=== PATIENT | female | born 1995 | race Caucasian/White ===

== ENCOUNTER 2024-04-04 03:06 | Emergency (ER) | payer MEDICAID, SELFPAY ==
[2024-04-04 03:07] VITALS: BMI 35.7
--- NOTE | 2024-04-04 03:19 | PC.NURSE ---
PT ELOPED THE ER DUE HER PRIMARY CARE BEING ASSOCIATED WITH KD. PROVIDER NOTIFIED.
== END 2024-04-04 03:21 | disposition left against medical advice (07) ==
LOC: SERX 03:36
PROVIDERS: Emergency Provider Emergency Medicine
DX: Z53.21 Procedure and treatment not carried out due to patient leaving prior to being seen by health care provider (principal)

== ENCOUNTER 2024-05-24 01:38 | Emergency (ER) | payer MEDICAID, SELFPAY ==
[2024-05-24] VITALS (11 sets, daily range): BP systolic 112–146; BP diastolic 63–83; PULSE 79–98; RESP 15–18; TEMP 36.8–37.4; O2SAT 98–100; BMI 35.9
--- NOTE | 2024-05-24 02:23 | EDNOTE_ITS ---
ED OB Contraction Preg RMI/HPI General Chief complaint: Vaginal Bleeding Stated complaint: VAGINAL BLEEDING Time Seen by Provider: 05/24/24 02:18 Arrival date/time: 05/24/24 01:38 RME / HPI RME / HPI Narrative: Dr. Martinez?s Main ED Evaluation: 28yo female A1 with a history of DMI BIBA who is 13 weeks gestationfrom home presents to the ED for a chief complaint of vaginal bleeding. Patient states she's been vomiting for the last 2 days, reporting she started being able to tolerate PO fluids at 1700 today. She states she went to bed and woke up just [employer] with her pants soaked in blood. She denies any fever, chills, cough, abdominal pain or any other associated symptoms. This current has had issues with vaginal bleeding where where she reports an ultrasound done as an outpatient twice showing an IUP but monitoring for a possible hemorrhage . Patient's OP is as [facility] in [place]. Patient notes her blood sugars have been elevated today. Related Data Home Medications ?Medication ?Instructions ?Recorded ?Confirmed vit no.95-ferrous tab PO 01/26/23 fumarate 28 mg-folic acid 800 mcg tablet () labetalol 200 mg tablet 200 mg PO BID 10/22/23 10/22/23 Previous Rx's ?Medication ?Instructions ?Recorded flash glucose sensor (FreeStyle #1 ea 02/24/22 Ramiro 14 Day Sensor kit) insulin glargine 100 unit/mL (3 40 unit (0.4 mL) subcut QDAY #15 mL 10/24/23 mL) subcutaneous pen (Lantus Solostar U-100 Insulin) insulin lispro 100 unit/mL 1 sliding scale dose subcut 10/24/23 subcutaneous solution (Admelog USEASDIRECTD #10 mL U-100 Insulin lispro) lancets 28 gauge #100 ea 10/24/23 pen needle, diabetic 31 gauge x #100 ea 10/24/23 1/4 (Easy Comfort Pen [place]) pen needle, diabetic 31 gauge x #100 ea 10/24/23 1/4 (Easy Comfort Pen [place]) ondansetron 4 mg disintegrating 4 mg PO Q6H PRN nausea and 01/05/24 tablet vomiting #10 tabs Allergies Allergy/AdvReac Type Severity Reaction Status Date / Time cephalexin Allergy Severe BLISTERS Verified 01/05/24 09:58 TO MOUTH midazolam Allergy Severe BEHAVIORAL Verified 01/05/24 09:58 AGGITATION sulfamethoxazole Allergy Severe BLISTER Verified 01/05/24 09:58 trimethoprim Allergy Severe BLISTER Verified 01/05/24 09:58 Review of Systems Review of Systems Systems Reviewed: All systems reviewed, normal except as documented Narrative Review of Systems: Gen: No fever, no chills, no weight loss, + elevated blood sugar EYES: No discharge, no visual changes, no pain HEENT: No ear pain, no congestion, no sore throat PULM: No shortness of breath, no cough, no congestion CV: No chest pain, no dyspnea on exertion, no palpitations GI: + nausea, + vomiting, no diarrhea, no pain, no constipation : No frequency, no urgency, no dysuria. + vaginal bleeding Musc/skel: No joint pain, no back pain Skin: No rash. Warm and dry. Psyc: No hallucinations, no depression Heme/Lymph: No easy bleeding or bruising tendencies Neuro: No weakness, no headache Past Medical History Past Medical History NEUROLOGIC: Negative Neurological Disorders CARDIAC: Positive Hypertension; Negative Cardiac Disorders or Congestive Heart Failure RESPIRATORY: Negative Chronic Obstructive Pulmonary Disease (COPD) or Asthma GASTROINTESTINAL: Negative Gastrointestinal Disorders GENITOURINARY: Positive Genitourinary Disorders and Kidney Stones; Negative Renal Disease REPRODUCTIVE: Positive Previous Pregnancies MUSCULOSKELETAL: Negative Musculoskeletal Disorders ENDOCRINE: Positive Endocrine Disorders and Diabetes Mellitus Type 1; Negative Diabetes Mellitus Type 2 HEMATOLOGIC: Negative Sickle Cell Disease PSYCHO/SOCIAL: Positive Depression and Anxiety OTHER HISTORY: Positive Hospitalization, MRSA and Chicken Pox; Negative Blood Transfusions or Anesthesia Reactions Family History FAMILY HISTORY: Positive Family Cardiac Disorders and Family Cancer Surgical History SURGICAL: Positive Section Social History SMOKING STATUS: Former smoker SECOND HAND EXPOSURE: No SUBSTANCE USE: marijuana ED Exam Narrative Physical exam: GENERAL APPEARANCE: AxOx4, generally well-appearing, no acute distress. HEENT: NC, AT. MMM. EOMI, clear conjunctiva, oropharynx clear. NECK: Supple without lymphadenopathy. No stiffness or restricted ROM. HEART: Normal rate and regular rhythm, normal S1/S1, no m/r/g LUNGS: CTAB, moving air well. No crackles or wheezes are heard. ABDOMEN: Soft, nontender, nondistended with good bowel sounds heard. BACK: No midline C/T/L spine pain or deformity, No CVAT, no obvious deformity. EXTREMITIES: Without cyanosis, clubbing or edema. MUSCULOSKELETAL: FROM of all major joints, no chest tenderness NEUROLOGICAL: Grossly nonfocal. Alert and oriented, moving all 4 extremities. CN not formally tested but appear grossly intact. Skin: Warm and dry without any rash. Course Quality Measures none Orders Category Date Time Status Beta HCG,Quantitative Stat Lab 05/24/24 02:50 Completed CBC Stat Lab 05/24/24 02:50 Completed CMP [Comprehensive Metabolic Panel] Stat Lab 05/24/24 02:50 Completed Ketone [Beta Hydroxybutyrate] Stat Lab 05/24/24 02:50 Completed Urinalysis Stat Lab 05/24/24 04:45 Received VBG [Venous Blood Gas] Stat Lab 05/24/24 02:50 Completed Ondansetron Inj [Zofran Inj] Med 05/24/24 03:03 Discontinued 4 mg IV X1 ONE Ondansetron Inj [Zofran Inj] Med 05/24/24 03:12 Discontinued 4 mg IV X1 ONE Sodium Chloride 0.9% 1000 ml [Ns] 1,000 ml Med 05/24/24 02:23 Discontinued IV 999 mls/hr Sodium Chloride 0.9% 1000 ml [Ns] 1,000 ml Med 05/24/24 02:24 Discontinued IV 999 mls/hr Sodium Chloride 0.9% 1000 ml [Ns] 1,000 ml Med 05/24/24 04:10 Discontinued IV 999 mls/hr Vital Signs Vital signs: Vital Signs Temperature 98.9 F 05/24/24 01:40 Pulse Rate 88 05/24/24 01:40 Respiratory Rate 17 05/24/24 01:40 Blood Pressure 112/71 05/24/24 01:40 Pulse Oximetry (%) 100 05/24/24 01:40 Oxygen Delivery Method Room Air 05/24/24 01:40 Pulse ox is 100% on room air, which is normal according to my interpretation. Vaginal Bleeding MDM Narrative MDM Narrative: Ms. Davenport is 13 weeks with outpatient ultrasound and already confirmed IUP who presents with both nausea vomiting has been persistent with her and recurrence of vaginal bleeding for the last 2 days. She does not have pelvic pain. She had elevated blood sugars at home and come to the emergency department to assess for possible DKA. Laboratory testing showed noes anion gap acidosis with a be consistent with diabetic ketoacidosis. She does have some signs of volume contraction or even possibly ketosis secondary to her nausea vomiting, therefore she was aggressively treated with IV fluids. Quantitative beta-hCG was sent today for her to monitor with her primary care doctor. Ultrasound is not indicated today due to the early age of and having been ruled out for ectopic by her [employer] doctor as an outpatient. For vaginal bleeding CBC was done which shows a stable hemoglobin. She is pending urinalysis for possible asymptomatic bacteriuria, and is signed out to oncoming provider pending urine results and final disposition Scribe Attestation: 05/24/24 - Elba, Merle Hines am scribing for and in the presence of Dr. Martinez. Patient data External records reviewed:: [facility] previous records (Per chart review, patient was seen and admitted here on 10/21/23 for JESUS.) Clinical information provided by:: patient Social determinants that could affect healthcare access:: none Patient has the following chronic illnesses:: DMI, HTN How is presenting disease/condition affected by chronic disease/condition?: exacerbated by Evaluation data The following diagnostics were reviewed and interpreted by me:: lab results Lab and/or radiology exams considered but not ordered:: none Interpretation Summary: WBC count is elevated at 18.0, Beta Hydroxybutyrate is 2.6, Glucose is 263, [place] [address], according to my interpretation. Medications / Prescriptions Medications or Prescriptions considered but not ordered:: none Medication administrations:: Medication Administration History Discontinued Medications Sodium Chloride (Ns) 1,000 mls @ 999 mls/hr IV .Q1H1M ONE Stop: 05/24/24 03:23 Last Infusion: 05/24/24 04:27 Dose: Infused Documented By: Admin: 05/24/24 03:05 Dose: 999 mls/hr Documented By: ASHLEY Sodium Chloride (Ns) 1,000 mls @ 999 mls/hr IV .Q1H1M ONE Stop: 05/24/24 03:24 Last Infusion: 05/24/24 04:27 Dose: Infused Documented By: Admin: 05/24/24 03:04 Dose: 999 mls/hr Documented By: ASHLEY Sodium Chloride (Ns) 1,000 mls @ 999 mls/hr IV .Q1H1M ONE Stop: 05/24/24 05:10 Last Admin: 05/24/24 04:38 Dose: 999 mls/hr Documented By: ASHLEY Ondansetron HCl (Ondansetron Inj 2 Mg/Ml Inj 2 Ml) 4 mg IV X1 ONE; Protocol Stop: 05/24/24 03:04 Last Admin: 05/24/24 03:16 Dose: Not Given Documented By: ASHLEY Non-Admin Reason: Duplicate Medication on eMAR Ondansetron HCl (Ondansetron Inj 2 Mg/Ml Inj 2 Ml) 4 mg IV X1 ONE; Protocol Stop: 05/24/24 03:13 Last Admin: 05/24/24 03:15 Dose: 4 mg Documented By: ASHLEY see above Consultations Consultation(s) initiated? (list below): No Diagnosis Vaginal Bleeding Differential Diagnosis: other (DKA, diabetic gastroparesis, vomiting in , hyperemesis gravidarum, threatened miscarriage) Most likely diagnosis given after review of the tests above:: final dx pending at sign out Admission Indicated Admission indicated?: not indicated Admission Request Was there a request for admission?: No Disposition Plan Disposition Plan: other (specify) (Signed out to Dr. Combs at 0600 pending urinalysis and final disposition.) Discharge Plan Plan Patient Disposition: HOME (Self Care) Prescriptions/Referrals Prescriptions/Med Rec: No Action ondansetron 4 mg tablet,disintegrating 4 mg PO Q6H PRN (Reason: nausea and vomiting) Qty: 10 0RF (DME) FreeStyle Ramiro 14 Day Sensor Kit See Rx Instructions .Route Qty: 1 0RF Rx Instructions: As directed PNV cmb#95-ferrous fumarate-FA [] 28 mg iron- 800 mcg Tablet PO labetalol 200 mg tablet 200 mg PO BID Patient Comments: TAKE ONE TABLET BY MOUTH TWICE DAILY (DME) pen needle, diabetic [Easy Comfort Pen [place]] 31 gauge x 1/4 needle See Rx Instructions .Route Qty: 100 2RF Rx Instructions: As directed insulin glargine [Lantus Solostar U-100 Insulin] 100 unit/mL (3 mL) insulin pen 40 unit subcut QDAY Qty: 15 6RF insulin lispro [Admelog U-100 Insulin lispro] 100 unit/mL solution 1 sliding scale dose subcut USEASDIRECTD Qty: 10 8RF (DME) lancets 28 gauge misc See Rx Instructions .Route Qty: 100 0RF Rx Instructions: As directed (DME) pen needle, diabetic [Easy Comfort Pen [place]] 31 gauge x 1/4 needle See Rx Instructions .Route Qty: 100 0RF Rx Instructions: As directed Referrals: Vickie Valentine MD [Primary Care Provider] - In 1 week Problem List Clinical Impression: Nausea and vomiting during , Threatened miscarriage Patient/Caregiver Discharge Instructions Education Materials: ED Possible Miscarriage ..., ED Vomiting (Adult) Additional Instructions: During is important to stay very well-hydrated. Nausea medicines are prescribed to help you with this. Bleeding can be normal in early , but also can be sign of a possible miscarriage. Pelvic rest until cleared by your [employer] [place] [address], follow-up with your [employer] in 2 to 3 days for possible repeat blood testing. It can be useful to ensure you are signed up for portal access to your medical records so you can review these results directly from your medical records with your [employer] doctor. Feel free return to the emergency department sooner if symptoms worsen or if you notice any new, concerning issues. Print Language: Kinyarwanda Stand Alone Forms: Ophelia Award Info., Patient Portal Info Letter
[2024-05-24 03:03] LABS: Base Excess, Venous -7 (-3-3); O2 Saturation, Venous 88 % (96-97); PCO2, Venous 28 mmHg (36-56); PO2, Venous 54 mmHg (15-58); pH, Venous 7.38 (7.33-7.66)
[2024-05-24] MEDS: SODIUM CHLORIDE 0.9% 1000 ML 1,000 ML 999 ML IV ×3 (03:04→04:38)
[2024-05-24 03:13] LABS: Basophils % (Auto) 0 % (0-2.5); Eosinophils % (Auto) 0 % (0-10); Hematocrit 41.5 % (36.0-46.0); Hemoglobin 14.1 g/dL (12.0-16.0); Immature Granulocytes % (Auto) 0 % (0-0); Immature Granulocytes Auto 0.07 Thou/mm3 (0.00-0.00); Lymphocytes # (Auto) 2.1 Thou/mm3 (1.0-4.8); Lymphocytes % (Auto) 12 % (10-50); Mean Corpuscular Hemoglobin 29.7 pg (25.0-35.0); Mean Corpuscular Volume 88 fL (80-100); Monocytes % (Auto) 6 % (0-12); Neutrophils # (Auto) 14.7 Thou/mm3 (1.8-7.7); Neutrophils % (Auto) 82 % (37-80); Nucleated Red Blood Cell % 0 /100 WBC (0); Platelet Count 183 Thou/mm3 (140-440); RDW Standard Deviation 45.2 fL (36.4-46.3); Red Blood Count 4.74 Miln/mm3 (4.00-5.20)
[2024-05-24] MEDS: ONDANSETRON INJ 2 MG/ML INJ 2 ML 4 MG IV (03:15)
[2024-05-24 03:24] LABS: Beta Hydroxybutyrate 2.6 mmol/L (<0.6)
[2024-05-24 03:51] LABS: Alanine Aminotransferase 14 U/L (10-49); Albumin, Serum 4.6 gm/dL (3.5-5.0); Albumin/Globulin Ratio 1.8 (1.2-2.2); Alkaline Phosphatase 93 U/L (46-116); Anion Gap 14 (7-16); Aspartate Amino Transferase 21 U/L (0-34); BUN/Creatinine Ratio 16 Ratio (12-20); Bilirubin,Total 1.1 mg/dL (0.3-1.2); Blood Urea Nitrogen 11 mg/dL (9-23); Chloride 101 mMol/L (98-107); Creatinine (Component) 0.7 mg/dL (0.6-1.3); Estimated Creatinine Clearance 120.4 mL/min (>60); Globulin 2.6 gm/dL (2.3-3.5); Glucose 263 mg/dL (74-106); Osmolality,Calculated 271 (275-295); Potassium 4.2 mMol/L (3.4-5.1); Sodium 131 mMol/L (136-145); Total Protein 7.2 gm/dL (5.7-8.2); eGFR > 60 See Note
[2024-05-24 04:15] LABS: Beta HCG,Quantitative 48473 mIU/mL (<5.0)
[2024-05-24 05:28] LABS: Collection Type, Urine Clean Catch
[2024-05-24 05:43] LABS: Bilirubin,Urine Negative (Negative); Blood,Urine 3+ (Negative); Clarity,Urine Clear (Clear/Hazy); Color,Urine Lt-Yellow (Lt Yel-Yel); Glucose, Urine 4+ (Negative); Ketones,Urine 4+ (Negative); Leukocyte Esterase,Urine Negative (Negative); Nitrite,Urine Negative (Negative); Protein,Urine 1+ (Neg - Trace); RBC,Urine 3 /hpf (0-3); Specific Gravity,Urine 1.031 (1.001-1.035); Squamous Epithelial Cell,Urine 4 /hpf (0-5); Urobilinogen,Urine Negative mg/dL (0.0-1.0); WBC,Urine 4 /hpf (0-5)
--- NOTE | 2024-05-24 06:47 | XR_ITS ---
Examination: Complete OB ultrasound, less than 14 weeks, transabdominal Date and time of exam: May 24, 2024 0743 hrs. Indications: Vaginal bleeding beginning one month ago, worse today, vomiting beginning 2 days ago, diagnosis diabetes type 1, history miscarriage Technique: Obstetrical ultrasound images less than 14 weeks performed via transabdominal imaging Findings: A normal shaped single intrauterine gestation is present in the uterus. Uterus 16.3 x 7.3 x 10.9 cm Cervix 4.4 cm pole 7.2 cm corresponds to 13 weeks 3 days gestational age Cardiac motion 148 BPM Placenta fundal no subchorionic hemorrhage Ultrasonographic survey of visible and placental structures unremarkable. Amniotic fluid volume appears appropriate for this estimated gestational age. Right ovary 4.2 x 2.3 x 2.6 cm arterial flow Left ovary 4.2 x 2.3 x 2.9 cm arterial flow Impression: Viable intrauterine gestation 13 weeks 3 days No subchorionic hemorrhage.
--- NOTE | 2024-05-24 07:05 | PC.NURSE ---
Report received at this time; per report, pt coming from home with c/o heavy vaginal bleeding around 0130 this morning. Pt is G5, P3; pt did have 1 miscarriage. Pt ordoñez hx of DM type 1. Pt is currently 13 weeks . MD ordered Ultrasound, but we're still waiting on tech to come do it. Pt connected to monitors at this time.
--- NOTE | 2024-05-24 07:30 | PC.NURSE ---
Spoke to Christina from [facility]; per Christina, will come get pt next after I ultrasound on another pt.
--- NOTE | 2024-05-24 08:52 | PD.EDADDENDU ---
Emergency Room Addendum Addendum Narrative: I took over the care from Dr. Wheatley at 6 AM on 05/24/2024, see his notes for complete H&P and ED course. I reviewed all diagnostic test results. My review of the OB ultrasound report is IUP with GA 13 3/7 weeks. Blood tests and urine tests unremarkable. At this point, diagnoses include threatened miscarriage and severe dehydration. Treatment here included IV fluid and Zofran. Significant improvement noted. Recommended supportive care and expectant management. Based on my best medical judgment, made decision no further evaluation or treatment indicated at this time. Patient understands and agrees to the discharge instructions customized and printed, see below. Discharge Instructions from Dr. Combs: 1.? ? ? After evaluation, your baby is alive and doing well. 2.? ? ? Today, your GA is 13 3/7 weeks. 3.? ? ? Only time will determine whether you will have a successful or you will have a miscarriage.? If your symptoms stop, you can have a successful .? If your symptoms worsen, you may have a miscarriage.? If you have a miscarriage, unfortunately we won?t be able to save the baby because it?s too early.? Under 20 weeks, unfortunately we can?t help.? 4.? ? ? We need to eat regular nutritious meals and stay hydrated for you and your baby. Zofran for nausea/vomiting.? Increase oral fluid and maintain clear urine.? If dark or yellow, increase oral fluid. Some good choices are water (but not only water because it will cause electrolyte abnormalities), sports drinks like Gatorade (with less sugar content), coconut water, chicken stock, and other fluid with electrolytes (like Pedialyte). 5.? ? ? See your doctor on 05/26/2024 for recheck and further care. No sexual activity until cleared by your doctor. Ask to review all test results and official radiology reports, to make sure you receive all necessary follow-ups and monitoring. Seek immediate medical care for severe bleeding (soaking more than 3 pads per hour), intolerable pain, or with any concerns. Vargas Combs MD
== END 2024-05-24 09:08 | disposition home or self-care (01) ==
PROVIDERS: Emergency Medicine; Emergency Provider Emergency Medicine; PCP Internal Medicine
DX: O20.0 Threatened abortion (principal); O21.9 Vomiting of pregnancy, unspecified; Z3A.13 13 weeks gestation of pregnancy
CPT/HCPCS: 36415; 76801; 80053; 81001; 82010; 82803; 83735; 84702; 85025; 96361; 96374; 99284; J2405; J7030

== ENCOUNTER 2024-09-10 07:29 | Inpatient (IN) | payer MEDICAID, SELFPAY ==
[2024-09-10] VITALS (33 sets, daily range): BP systolic 125–158; BP diastolic 67–97; PULSE 73–118; RESP 16–36; TEMP 37–37.4; O2SAT 98–100; BMI 43.0; BMI 41.5
--- NOTE | 2024-09-10 07:55 | PD.EDNV ---
Nausea/Vomit./Diarrhea-RME/HPI General Chief complaint: Nausea/Vomiting/Diarrhea Stated complaint: N/V Time Seen by Provider: 09/10/24 07:57 Arrival date/time: 09/10/24 07:29 RME / HPI RME / HPI Narrative: 29 year old female with history of insulin-dependant diabetes and previous admission for DKA presents to the ED for evaluation of nausea and vomiting beginning at midnight. Accompanied by feeling very fatigued and abdominal pain that is located most to the epigastric region. States her symptoms today feel like I'm on the road to DKA and blood sugar yesterday was in the 400's. Denies missing any insulin doses. Denies fevers, chills, sweats, diarrhea, or urinary symptoms. Related Data Home Medications ?Medication ?Instructions ?Recorded ?Confirmed vit no.95-ferrous tab PO 01/26/23 fumarate 28 mg-folic acid 800 mcg tablet () labetalol 200 mg tablet 200 mg PO BID 10/22/23 10/22/23 Previous Rx's ?Medication ?Instructions ?Recorded flash glucose sensor (FreeStyle #1 ea 02/24/22 Ramiro 14 Day Sensor kit) insulin glargine 100 unit/mL (3 40 unit (0.4 mL) subcut QDAY #15 mL 10/24/23 mL) subcutaneous pen (Lantus Solostar U-100 Insulin) insulin lispro 100 unit/mL 1 sliding scale dose subcut 10/24/23 subcutaneous solution (Admelog USEASDIRECTD #10 mL U-100 Insulin lispro) lancets 28 gauge #100 ea 10/24/23 pen needle, diabetic 31 gauge x #100 ea 10/24/23 1/4 (Easy Comfort Pen [place]) pen needle, diabetic 31 gauge x #100 ea 10/24/23 1/4 (Easy Comfort Pen [place]) ondansetron 4 mg disintegrating 4 mg PO Q6H PRN nausea and 01/05/24 tablet vomiting #10 tabs Allergies Allergy/AdvReac Type Severity Reaction Status Date / Time cephalexin Allergy Severe BLISTERS Verified 09/10/24 07:34 TO MOUTH midazolam Allergy Severe BEHAVIORAL Verified 09/10/24 07:34 AGGITATION sulfamethoxazole Allergy Severe BLISTER Verified 09/10/24 07:34 trimethoprim Allergy Severe BLISTER Verified 09/10/24 07:34 Review of Systems Review of Systems Narrative Review of Systems: Constitutional: SEE HPI +feeling fatigued. DENIES; Fevers Eyes: DENIES; Loss of vision Head/Ear/Nose: DENIES; Loss of hearing Throat: DENIES; Dysphagia Cardiovascular: DENIES; Chest pain, dyspnea or syncope Respiratory: DENIES; Shortness of breath Gastrointestinal: SEE HPI +nausea, vomiting, abdominal pain. DENIES; Rectal bleeding or melena. Genitourinary: DENIES; Dysuria (painful or difficult urination) Musculoskeletal: DENIES; Arthralgia (pain in a joint),; Skin: DENIES; Rash Neurological: DENIES; Loss of function or movement Psychiatric: DENIES; recent major life stressor, emotional problem, illicit drug use or abuse Allergic/Immunologic: DENIES; Urticaria (hives) Past Medical History Past Medical History CARDIAC: Positive Hypertension GENITOURINARY: Positive Genitourinary Disorders and Kidney Stones REPRODUCTIVE: Positive Previous Pregnancies (3 C-SECTIONS) ENDOCRINE: Positive Endocrine Disorders and Diabetes Mellitus Type 1 PSYCHO/SOCIAL: Positive Depression and Anxiety OTHER HISTORY: Positive Hospitalization, MRSA and Chicken Pox Family History FAMILY HISTORY: Positive Family Cardiac Disorders and Family Cancer Surgical History SURGICAL: Positive Section Social History SMOKING STATUS: Never smoker SECOND HAND EXPOSURE: No SUBSTANCE USE: marijuana ED Exam Narrative Physical exam: Physical Exam: General: The patient is sleepy but arousable to questions, no kussmaul breathing. The vital signs were reviewed. The patient is non-toxic, in no apparent distress and appears healthy with a patent airway, no respiratory distress and has no apparent circulatory problems. Head & Scalp: Normocephalic, atraumatic. Face: Appears normal and is without lesions, deformity. Ears: Left external pinna appears normal. Right external pinna appears normal. Eyes: The sclera is anicteric. No obvious photophobia. The Left and Right Orbit/Lid/Conjunctiva appears normal without swelling, discoloration or injection. Nose: The nose is without deformity, discharge or tenderness; Throat: Appears normal. The mucous membranes are pink and moist without exudates, redness or mass seen. The tongue appears normal. Neck: The neck is supple and no apparent mass or adenopathy. Chest: The chest wall is normal in size and symmetry and has no chest wall tenderness or crepitus. The patient displays normal ventilator effort without retractions, accessory muscle use and has adequate air movement bilaterally with no wheezes and no rales. Cardiovascular: Regular rate and rhythm; No murmurs, rubs, or gallops; Gastrointestinal: The abdomen appears normal. No obvious hernias or mass. The abdomen is soft and benign, non-distended, with no pain, no guarding and no rebound tenderness. Bowel sounds are present and normal sounding. No CVA tenderness. Genitourinary: Back/Spine: Extremities/Musculoskeletal/lymphatic: The bilateral upper and lower extremities are warm. There is no evidence of arterial insufficiency. There is no evidence of venous insufficiency/edema. The patient spontaneously moves bilateral upper and lower extremities with no pain and no limitation of movement. There is no apparent, injury or trauma. Skin: The skin is warm, dry and intact. No rashes. No petechia. No purpura. No abnormal bruising. The color is appropriate with no cyanosis. Mental status/Psychiatric: Mental status is appropriate for age. The patient has no apparent delusions, visual hallucinations, no apparent audible hallucinations. The patient has no apparent suicidal thoughts/ideation and no apparent homicidal thoughts/ideation. Neurological: The patient is awake, alert, interactive, cordial, cooperative and is oriented to name and situation. The patient follows commands and answers historical question with no impairment. There is no visual disturbance apparent. The pupils are equal and reactive bilaterally with normal eye movements and no diplopia The bilateral upper and lower extremities have normal strength, normal range of motion and normal functioning. The gait, station and balance were not tested. Course Quality Measures none Orders Category Date Time Status Patient Condition Routine Admission 09/10/24 13:[address] in Observation Status Routine Admission 09/10/24 13:58 Active Activity as Tolerated Routine Care 09/10/24 13:58 Ordered EKG (ED ONLY) *Do not use* NOW Care 09/10/24 08:50 Completed Notify provider NEEDED Care 09/10/24 13:57 Active Diet Carbohydrate Consistent Low Diet 09/10/24 Lunch Active EKG (ED Only) Stat Exams 09/10/24 08:50 Draft US OB <= 14 weeks fetus Stat Exams 09/10/24 11:31 Completed XR chest 1V portable Stat Exams 09/10/24 07:57 Completed Beta HCG,Quantitative Stat Lab 09/10/24 09:45 Completed Beta Hydroxybutyrate Stat Lab 09/10/24 08:10 Completed Blood Culture (Lab) Stat Lab 09/10/24 09:15 Received CBC Stat Lab 09/10/24 08:10 Completed Comprehensive Metabolic Panel Stat Lab 09/10/24 08:10 Completed HCG Qualitative,Urine Stat Lab 09/10/24 08:20 Completed Lactate (Lactic Acid) Stat Lab 09/10/24 08:25 Completed Lipase Stat Lab 09/10/24 08:10 Completed Troponin I Stat Lab 09/10/24 08:10 Completed Urinalysis Stat Lab 09/10/24 08:20 Completed Urinalysis, C/S if Indicated Stat Lab 09/10/24 08:20 Completed Venous Blood Gas Stat Lab 09/10/24 08:25 Completed Insulin Regular Med 09/10/24 13:20 Discontinued 5 unit IV X1 ONE Ondansetron Inj [Zofran Inj] Med 09/10/24 07:57 Discontinued 4 mg IV X1 ONE Sodium Chloride 0.9% 1000 ml [Ns] 1,000 ml Med 09/10/24 08:00 Discontinued IV 200 mls/hr Sodium Chloride 0.9% 1000 ml [Ns] 1,000 ml Med 09/10/24 13:20 Discontinued IV 999 mls/hr Sodium Chloride 0.9% 1000 ml [Ns] 2,000 ml Med 09/10/24 07:57 Discontinued IV 1,000 mls/hr Code Status Routine Oth 09/10/24 13:57 Ordered Vital Signs Vital signs: Vital Signs Temperature 99.3 F 09/10/24 07:31 Pulse Rate 78 09/10/24 07:31 Respiratory Rate 16 09/10/24 07:31 Blood Pressure 138/85 H 09/10/24 07:31 Pulse Oximetry (%) 98 09/10/24 07:31 Oxygen Delivery Method Room Air 09/10/24 07:31 Pulse ox is 98% on room air which is adequate. Nausea/Vomiting/Diarrhea MDM Narrative MDM Narrative:: Jennyfer Arreola am scribing for and in the presence of Dr. Elizabeth. 0935: Patient reports she had a miscarriage at 18w1d earlier this year and a follow up appt with OBGYN 6 weeks after. States she has a menses last month and took a test last week that was negative. Patient is A2. Patient was concern for her diabetes and DKA when she arrived she was vomiting she received 2 L of fluid her sugars were in the 200 range on several checks. Her labs came back with a mild elevation hydroxybutyrate and a mild metabolic acidosis. Patient is comfortable. She gave us information about her recent after she was already in the room getting worked up and then we found her test was positive and quantitative came back at 457 ultrasound is negative as it is too early to see and technically she is 1 to 10 days by her dates. After 2 L of fluid patient is feeling more comfortable. Medical workup reveals a white count 8.9 hemoglobin of 14.3 there is a 91% neutrophils. Venous blood gas came back the pH is 7.32 with a pCO2 of 33 sodium 138 potassium 4.3 chloride 106 CO2 slightly low at 19 anion gap is 13 BUN is 8 creatinine is 0.7 glucose was 281 lactic acid 1.3 troponin was negative beta-hydroxybutyrate came back at 3.5. Urinalysis came back with 4+ glucose 4+ ketones no white cells no red cells. Chest x-ray reveals no infiltrate no effusion normal heart Show as mentioned above patient has mild DKA the cause of this is unclear she is an early but that is not appear to be the issue. There is no obvious infection clinically. We called the hospitalist to admit we will start her on some IV insulin 5 units continue the fluids. Patient was updated on the status of her and the DKA and understand she will be admitted. Patient data External records reviewed:: [facility] previous records (I reviewed ED visit on 05/24/2024 for n/v ) Clinical information provided by:: patient Social determinants that could affect healthcare access:: none Patient has the following chronic illnesses:: T1DM, hx of DKA How is presenting disease/condition affected by chronic disease/condition?: exacerbated by Evaluation data The following diagnostics were reviewed and interpreted by me:: lab results, radiology exam(s) and EKG tracing(s) (EKG @ 08:59 hours. Sinus rhythm, rate 72, no STEMI. ) Lab and/or radiology exams considered but not ordered:: None Interpretation Summary: Ordering Physician: Mina Elizabeth MD Date of Service: 09/10/24 Procedure(s): XR chest 1V portable Accession Number(s): [id number] cc: Mina Elizabeth MD; Mg Myles MD; NO PRIMARY/FAMILY,PHYSICIAN~ Examination: AP chest single view Technique : AP portable upright chest single view Exam date and time: September 10, 2024 at 0810 hours Comparison January 05, 2024 INDICATIONS: Onset chest pain today. FINDINGS: Normal heart size. Lungs are clear. The osseous structures are intact IMPRESSION: No active disease Dictated By: Mg Myles MD Signed By: <Electronically signed by Mg Myles MD in OV> 09/10/24 0906 Ordering Physician: Mina Elizabeth MD Date of Service: 09/10/24 Procedure(s): US OB <= 14 weeks fetus Accession Number(s): [id number] cc: Mina Elizabeth MD; Mg Myles MD; NO PRIMARY/FAMILY,PHYSICIAN~ Examination: Complete OB ultrasound, less than 14 weeks, transabdominal Date and time of exam: September 10, 2024 1134 hours INDICATIONS: Nausea vomiting today, diagnosis diabetes, diagnosis history miscarriage Technique: Obstetrical ultrasound images less than 14 weeks performed via transabdominal imaging Findings: Uterus 9.1 cm endometrial stripe 1.1 cm suspicious for retained products of conception No intrauterine gestation Right ovary 3.6 cm arterial flow Left ovary 6.3 cm arterial flow 4.6 x 4.9 cm cyst IMPRESSION: Suspicious for retained product of conception, consider transvaginal pelvic sonography follow-up Dictated By: Mg Myles MD Signed By: <Electronically signed by Mg Myles MD in OV> 09/10/24 1208 Medications / Prescriptions Medications / Prescriptions considered but not ordered:: None Medication administrations:: Medication Administration History Acetaminophen (Acetaminophen 325 Mg Tablet) 650 mg PO Q6H PRN PRN Reason: Mild Pain 1-3 or Fever 100.3 Stop: 10/10/24 13:58 Dextrose (Dextrose 50%-Water Inj 50 Ml Syringe) 25 ml IV Q15MIN PRN PRN Reason: BG 50-70 responsive npo pt Stop: 10/10/24 14:01 Dextrose (Dextrose 50%-Water Inj 50 Ml Syringe) 50 ml IV Q15MIN PRN PRN Reason: BG <50 OR BG <70 & pt unresponsive Stop: 10/10/24 14:01 Glucagon (Glucagon Inj 1 Mg Vial) 1 mg IM Q15MIN PRN PRN Reason: BG <70, and no IV access Heparin Sodium (Porcine) (Heparin Sod Inj 5000 Unit/Ml Vial) 5,000 unit SC Q12HR DAISY Stop: 09/24/24 20:59 Sodium Chloride (Ns) 1,000 mls @ 80 mls/hr IV .[id number] ONE Stop: 09/11/24 04:46 Last Admin: 09/10/24 16:49 Dose: 80 mls/hr Documented By: BRIAN Insulin Glargine (Insulin Glargine (Lantus) 5 Unit/0.05 Ml (Per 5 Units)) 20 unit SC [facility] Stop: 10/10/24 20:59 Insulin Human Lispro (Insulin Lispro (Admelog) 1 Unit/0.01 Ml Unit) 0 unit SC [facility]; Protocol Stop: 10/10/24 16:59 Last Admin: 09/10/24 16:48 Dose: 2 unit Documented By: BRIAN Co-signed By: SEGUN Labetalol HCl (Labetalol 100 Mg Tablet) 100 mg PO QDAY DAISY Stop: 10/10/24 18:44 Metoclopramide HCl (Metoclopramide Inj 5 Mg/Ml Vial 2 Ml) 5 mg IVP Q6HR DAISY; Protocol Stop: 10/10/24 17:59 Last Admin: 09/10/24 16:56 Dose: 5 mg Documented By: BRIAN Ondansetron HCl (Ondansetron Inj 2 Mg/Ml Inj 2 Ml) 4 mg IV Q6H PRN; Protocol PRN Reason: NAUSEA OR VOMITING Stop: 10/10/24 13:58 Sennosides (Senna Tablet) 1 tab PO QDAY DAISY; Protocol Stop: 10/10/24 13:59 Last Admin: 09/10/24 14:20 Dose: 1 tab Documented By: SALONI Discontinued Medications Sodium Chloride (Ns) 1,000 mls @ 200 mls/hr IV .Q5H DAISY Stop: 10/10/24 07:59 Last Admin: 09/10/24 16:39 Dose: Not Given Documented By: BRIAN Non-Admin Reason: Discontinued Admin: 09/10/24 10:08 Dose: 200 mls/hr Documented By: SALONI Sodium Chloride (Ns) 2,000 mls @ 1,000 mls/hr IV .Q2H ONE Stop: 09/10/24 09:56 Last Infusion: 09/10/24 10:08 Dose: Infused Documented By: Admin: 09/10/24 08:19 Dose: 1,000 mls/hr Documented By: SALONI Sodium Chloride (Ns) 1,000 mls @ 999 mls/hr IV .Q1H1M ONE Stop: 09/10/24 14:20 Last Admin: 09/10/24 14:29 Dose: 999 mls/hr Documented By: SALONI Insulin Human Regular (Insulin Hum Regular 1 Unit/0.01 Ml (Per Unit)) 5 unit IV X1 ONE Stop: 09/10/24 13:21 Last Admin: 09/10/24 14:21 Dose: 5 unit Documented By: SALONI Co-signed By: DAVINA Ondansetron HCl (Ondansetron Inj 2 Mg/Ml Inj 2 Ml) 4 mg IV X1 ONE Stop: 09/10/24 07:58 Last Admin: 09/10/24 08:19 Dose: 4 mg Documented By: SALONI Pyridoxine HCl (Pyridoxine 50 Mg Tablet) 50 mg PO X1 ONE Stop: 09/10/24 16:18 Last Admin: 09/10/24 16:59 Dose: Not Given Documented By: BRIAN Non-Admin Reason: pt throwing up See above Consultations Consultation(s) initiated? (list below): Yes Consultation #1 (Physician, Specialty, Details): I spoke with resident Dr. Irwin. Discussed patients PMHx, HPI, ED course, exam findings, labs, and radiology results. The hospitalist agree to accept the patient for admission. Time: 13:20 Diagnosis Nausea Differential Diagnosis: gastroenteritis, drug-induced nausea and vomiting, dehydration and other (DKA ) Most likely diagnosis given after review of the tests above:: DKA First trimester Admission Indicated Admission indicated?: indicated Admission Request Was there a request for admission?: Yes Admission Attestation Admission request attestation: Discussed case with [] from Hospitalist service regarding admission. Discussed patients ED course, exam findings, labs, and radiology results. The Hospitalist [agrees,declines] to accept the patient for admission. Disposition Plan Disposition Plan: Admit Critical Care Time Critical Care Time Critical Care Time: Yes Total Critical Care Time (min.): 45 Attestation: The high probability of sudden, clinically significant deterioration in the patient's condition required the highest level of my preparedness to intervene urgently. The services I provided to this patient were to treat and/or prevent clinically significant deterioration. Services included the following: chart data review, reviewing nursing notes and/or old charts, documentation time, microsoft infrastructure consultant collaboration regarding findings and treatment options, medication orders and management, direct patient care, vital sign assessments and ordering, interpreting and reviewing diagnostic studies and lab tests. Aggregate critical care time includes only time during which I was engaged in work directly related to the patient's care, as described above, whether at bedside or elsewhere in the Emergency Department. It did not include time spent performing other reported procedures or the services of residents, students, nurses or physician assistants. Discharge Plan Plan Patient Disposition: Admit Acute Care w/in Hospital Disposition Comment: Hospitalist to admit Problem List Clinical Impression: Diabetic ketoacidosis, First trimester
[2024-09-10] MEDS: ONDANSETRON INJ 2 MG/ML INJ 2 ML 4 MG IV (08:19)
[2024-09-10] MEDS: SODIUM CHLORIDE 0.9% 1000 ML 2,000 ML IV (08:19)
--- NOTE | 2024-09-10 08:50 | EKG_ITS ---
[facility] Test Date: 2024-09-10 Pat Name: SUNDAR SIDDIQI Department: Room: - Gender: Female Health Outcomes Liaison: : 1995 Requested By: Mina Elizabeth Order Number: [id number] Reading MD: Mina Elizabeth Measurements Intervals [place] Rate: 72 P: 48 OR: 156 QRS: 0 QRSD: 95 T: 17 QT: 411 QTc: 450 Interpretive Statements SINUS RHYTHM Compared to ECG 10/22/2023 15:29:20 Atrial fibrillation no longer present /store/S0/[id number].pdf
[2024-09-10 09:02] LABS: Collection Type, Urine Catheter; RBC,Urine 0 /hpf (0-3); Squamous Epithelial Cell,Urine 0 /hpf (0-5); WBC,Urine 0 /hpf (0-5)
[2024-09-10 09:03] LABS: HCG Qualitative,Urine Positive
[2024-09-10 09:32] LABS: Base Excess, Venous -8 (-3-3); Lactate (Lactic Acid) 1.3 mMol/L (0.4-2.0); O2 Saturation, Venous 77 % (96-97); PCO2, Venous 33 mmHg (36-56); PO2, Venous 43 mmHg (15-58); pH, Venous 7.32 (7.33-7.66)
[2024-09-10 09:39] LABS: Basophils % (Auto) 0 % (0-2.5); Eosinophils % (Auto) 0 % (0-10); Hematocrit 41.2 % (36.0-46.0); Hemoglobin 14.3 g/dL (12.0-16.0); Immature Granulocytes % (Auto) 0 % (0-0); Immature Granulocytes Auto 0.02 Thou/mm3 (0.00-0.00); Lymphocytes # (Auto) 0.6 Thou/mm3 (1.0-4.8); Lymphocytes % (Auto) 7 % (10-50); Mean Corpuscular HGB Conc 34.7 g/dl (31.0-37.0); Mean Corpuscular Hemoglobin 29.8 pg (25.0-35.0); Mean Corpuscular Volume 86 fL (80-100); Monocytes # (Auto) 0.1 Thou/mm3 (0.0-0.8); Monocytes % (Auto) 1 % (0-12); Neutrophils # (Auto) 8.1 Thou/mm3 (1.8-7.7); Neutrophils % (Auto) 91 % (37-80); Nucleated Red Blood Cell % 0 /100 WBC (0); Platelet Count 184 Thou/mm3 (140-440); RDW Standard Deviation 38.2 fL (36.4-46.3); White Blood Count 8.9 Thou/mm3 (3.6-11.0)
[2024-09-10 09:42] LABS: Beta Hydroxybutyrate 3.5 mmol/L (<0.6)
[2024-09-10] MEDS: SODIUM CHLORIDE 0.9% 1000 ML 1,000 ML 200 ML IV (10:08)
[2024-09-10 10:11] LABS: Alanine Aminotransferase 10 U/L (10-49); Albumin, Serum 4.5 gm/dL (3.5-5.0); Albumin/Globulin Ratio 1.7 (1.2-2.2); Alkaline Phosphatase 117 U/L (46-116); Anion Gap 13 (7-16); Aspartate Amino Transferase 17 U/L (0-34); BUN/Creatinine Ratio 11 Ratio (12-20); Bilirubin,Total 0.7 mg/dL (0.3-1.2); Blood Urea Nitrogen 8 mg/dL (9-23); Chloride 106 mMol/L (98-107); Creatinine (Component) 0.7 mg/dL (0.6-1.3); Estimated Creatinine Clearance 129.6 mL/min (>60); Globulin 2.6 gm/dL (2.3-3.5); Glucose 281 mg/dL (74-106); Lipase 25 U/L (12-53); Osmolality,Calculated 283 (275-295); Potassium 4.3 mMol/L (3.4-5.1); Sodium 138 mMol/L (136-145); Total Protein 7.1 gm/dL (5.7-8.2); Troponin I < 0.002 ng/mL (0.0-0.045); eGFR > 60 See Note
[2024-09-10 10:37] LABS: Beta HCG,Quantitative 457 mIU/mL (<5.0)
[2024-09-10 11:29] LABS: Bilirubin,Urine Negative (Negative); Blood,Urine Negative (Negative); Clarity,Urine Clear (Clear/Hazy); Color,Urine Colorless (Lt Yel-Yel); Culture Indicated,Urine Not Indicated; Glucose, Urine 4+ (Negative); Ketones,Urine 4+ (Negative); Leukocyte Esterase,Urine Negative (Negative); Nitrite,Urine Negative (Negative); PH,Urine 6.5 (5.0-7.0); Protein,Urine 1+ (Neg - Trace); Specific Gravity,Urine 1.028 (1.001-1.035); Urobilinogen,Urine Negative mg/dL (0.0-1.0)
--- NOTE | 2024-09-10 11:31 | XR_ITS ---
Examination: Complete OB ultrasound, less than 14 weeks, transabdominal Date and time of exam: September 10, 2024 1134 hours INDICATIONS: Nausea vomiting today, diagnosis diabetes, diagnosis history miscarriage Technique: Obstetrical ultrasound images less than 14 weeks performed via transabdominal imaging Findings: Uterus 9.1 cm endometrial stripe 1.1 cm suspicious for retained products of conception No intrauterine gestation Right ovary 3.6 cm arterial flow Left ovary 6.3 cm arterial flow 4.6 x 4.9 cm cyst IMPRESSION: Suspicious for retained product of conception, consider transvaginal pelvic sonography follow-up
[2024-09-10] MEDS: SENNA TABLET 1 TAB PO (14:20)
[2024-09-10] MEDS: INSULIN HUM REGULAR 1 UNIT/0.01 ML (PER UNIT) 5 UNIT IV (14:21)
[2024-09-10] MEDS: SODIUM CHLORIDE 0.9% 1000 ML 1,000 ML 999 ML IV (14:29)
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
[2024-09-10 16:11] LABS: Beta HCG,Quantitative 468 mIU/mL (<5.0)
[2024-09-10] MEDS: INSULIN LISPRO (AdmeLOG) 1 UNIT/0.01 ML UNIT SC ×2 (16:48→20:23)
[2024-09-10] MEDS: SODIUM CHLORIDE 0.9% 1000 ML 1,000 ML 80 ML IV (16:49)
[2024-09-10] MEDS: METOCLOPRAMIDE INJ 5 MG/ML VIAL 2 ML IVP ×2 (16:56→23:14)
[2024-09-10] MEDS: LABETALOL 100 MG TABLET PO (18:52)
[2024-09-10] MEDS: HEPARIN SOD INJ 5000 UNIT/ML VIAL SC (20:24)
[2024-09-10] MEDS: INSULIN GLARGINE (Lantus) 5 UNIT/0.05 ML (PER 5 UNITS) 20 UNIT SC (20:24)
[2024-09-10 21:38] LABS: Amphetamine/Methamp Scrn,U Negative (Negative); Barbiturate Screen,Urine Negative (Negative); Benzodiazepines Screen,Urine Negative (Negative); Benzoylecgonine Screen, Ur Negative (Negative); Fentanyl Screen,Urine Negative (Negative); Opiate Screen,Urine Negative (Negative); THC Screen,Urine Positive (Negative)
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
[2024-09-11] VITALS (26 sets, daily range): BP systolic 98–170; BP diastolic 59–99; PULSE 80–115; RESP 14–33; TEMP 36.7–37.8; O2SAT 97–100
[2024-09-11] MEDS: ONDANSETRON INJ 2 MG/ML INJ 2 ML 4 MG IV (01:49)
[2024-09-11] MEDS: INSULIN HUM REGULAR 1 UNIT/0.01 ML (PER UNIT) 10 UNIT IV (02:35)
[2024-09-11] MEDS: RINGERS LACTATED 1000 ML 1,000 ML 999 ML IV (02:44)
[2024-09-11 03:32] LABS: Base Excess, Venous -22 (-3-3); O2 Saturation, Venous 93 % (96-97); PCO2, Venous 17 mmHg (36-56); PO2, Venous 75 mmHg (15-58); pH, Venous 7.11 (7.33-7.66)
[2024-09-11 03:39] LABS: Beta Hydroxybutyrate 4.4 mmol/L (<0.6)
[2024-09-11 03:40] LABS: Lactate (Lactic Acid) 3.4 mMol/L (0.4-2.0)
--- NOTE | 2024-09-11 03:41 | PC.NURSE ---
MD Saldana notified that patient's pH is 7.11 and beta hydroxybutyrate is 4.4
[2024-09-11 03:44] LABS: Basophils % (Auto) 0 % (0-2.5); Eosinophils # (Auto) 0.1 Thou/mm3 (0.0-0.5); Eosinophils % (Auto) 0 % (0-10); Hematocrit 41.8 % (36.0-46.0); Immature Granulocytes % (Auto) 1 % (0-0); Immature Granulocytes Auto 0.11 Thou/mm3 (0.00-0.00); Lymphocytes # (Auto) 0.9 Thou/mm3 (1.0-4.8); Lymphocytes % (Auto) 5 % (10-50); Mean Corpuscular HGB Conc 33.5 g/dl (31.0-37.0); Mean Corpuscular Volume 90 fL (80-100); Monocytes # (Auto) 0.5 Thou/mm3 (0.0-0.8); Monocytes % (Auto) 3 % (0-12); Neutrophils # (Auto) 15.6 Thou/mm3 (1.8-7.7); Neutrophils % (Auto) 91 % (37-80); Nucleated Red Blood Cell % 0 /100 WBC (0); Platelet Count 204 Thou/mm3 (140-440); Red Blood Count 4.66 Miln/mm3 (4.00-5.20); White Blood Count 17.1 Thou/mm3 (3.6-11.0)
--- NOTE | 2024-09-11 03:48 | ESCONSULT_ITS ---
HPI Data of Consult Requesting Physician: Martha Hyatt DO Admitting Provider: Martha Hyatt DO Attending Provider: Martha Hyatt DO Primary Care Provider: Cori Prabhakar PA-C Consult Narrative History of present illness: 29 year old female with PMH of DM1 BIBA from home to the ED for nausea and vomiting x 1 day. Associated with poor oral intake, shortness of breath, and polyuria. Endorses insulin compliance, which she takes 40 at night and sliding scale for mealtime though home blood sugar readings have been in the 400-500s. She denies fever, chills, headache, chest pain, stomach pain, constipation, diarrhea, sick contact. She was found to have elevated BHB and ketonuria, and admitted to the floors. She was also incidentally found to have elevated HCG. ultrasound showed a thickened endometrial striple, suspicious for retained POC. LMP [address] Trejo was consulted and likely patient has very early . Around 3am, was notified that patient felt very flushed, short of breath, and nauseous which is how she endorsed feeling in previous episodes of DKA. Bedside glucose was in the 300s. Upon chart review, patient did get 20 of Glargine at night and her glucose was still elevated. She received 3L of IVF throughout the day, unclear how much urine output as not being tracked. Ordered 1L of additional IVF and 10 units of insulin was given. Labs showed pH of 7.11 and BHB increased from 3 to 4, with a new lactic acidosis. Decision was made to upgrade the patient to the ICU for DKA protocol. cc:: cc: Martha Hyatt DO Review of Systems Review of Systems Systems Reviewed: All systems reviewed, normal except as documented Exam Vital Signs Temp Pulse Resp BP Pulse Ox O2 Del Method 98.1 F 100 30 H 119/65 97 Room Air 09/11/24 00:00 09/11/24 00:00 09/11/24 00:00 09/11/24 00:00 09/11/24 00:00 09/11/24 00:00 Narrative Exam Constitutional: Lethargic, flushed, orientated. HEENT: NCAT. Vision grossly intact. Mucous membranes dry Respiratory: CTAB bilaterally. Cardiac: RRR. Abdomen: Soft, non-distended, non-tender. MSK: No B/L LE edema. Skin: Warm, dry, intact. Neuro: Motor and sensation grossly intact. Results Labs 09/11/24 03:13 09/11/24 03:13 Labs: Short CBC 09/10/24 09/11/24 Range/Units 08:10 03:13 WBC 8.9 17.1 H D (3.6-11.0) Thou/mm3 Hgb 14.3 14.0 (12.0-16.0) g/dL Hct 41.2 41.8 (36.0-46.0) % Plt Count 184 204 (140-440) Thou/mm3 BMP 09/10/24 08:10 Sodium 138 Potassium 4.3 Chloride 106 Carbon Dioxide 19.0 L BUN 8 L Creatinine 0.7 Glucose 281 H Calcium 9.0 Cardiac Enzymes 09/10/24 Range/Units 08:10 Troponin I < 0.002 (0.0-0.045) ng/mL Liver Function 09/10/24 Range/Units 08:10 Total Bilirubin 0.7 (0.3-1.2) mg/dL AST 17 (0-34) U/L ALT 10 (10-49) U/L Alkaline Phosphatase 117 H (46-116) U/L Albumin 4.5 (3.5-5.0) gm/dL Urine 09/10/24 Range/Units 08:20 Urine Color Colorless A (Lt Yel-Yel) Urine Clarity Clear (Clear/Hazy) Urine pH 6.5 (5.0-7.0) Ur Specific Normal 1.028 (1.001-1.035) Urine Protein 1+ A (Neg - Trace) Urine Glucose (UA) 4+ A (Negative) ABG Interpretation ABG results: 09/10/24 09/11/24 08:25 03:13 VBG pH 7.32 L 7.11 L VBG pCO2 33 L 17 L D VBG pO2 43 75 H D VBG Base Excess -8 L -22 L Quality Measures Quality Measures none Medications Home Medications and Allergies Home Medications ?Medication ?Instructions ?Recorded ?Confirmed ?Type vit no.95-ferrous tab PO 01/26/23 History fumarate 28 mg-folic acid 800 mcg tablet () labetalol 200 mg tablet 200 mg PO BID 10/22/2309/10 History insulin glargine 100 unit/mL (3 40 unit subcut .qhs 09/10/24 History mL) subcutaneous pen (Lantus Solostar U-100 Insulin) Allergies Allergy/AdvReac Type Severity Reaction Status Date / Time cephalexin Allergy Severe BLISTERS Verified 09/10/24 07:34 TO MOUTH midazolam Allergy Severe BEHAVIORAL Verified 09/10/24 07:34 AGGITATION sulfamethoxazole Allergy Severe BLISTER Verified 09/10/24 07:34 trimethoprim Allergy Severe BLISTER Verified 09/10/24 07:34 Visit Medications Acetaminophen (Acetaminophen 325 Mg Tablet) 650 mg PO Q6H PRN PRN Reason: Mild Pain 1-3 or Fever 100.3 Stop: 10/10/24 13:58 Dextrose (Dextrose 50%-Water Inj 50 Ml Syringe) 25 ml IV Q15MIN PRN PRN Reason: BG 50-70 responsive npo pt Stop: 10/10/24 14:01 Dextrose (Dextrose 50%-Water Inj 50 Ml Syringe) 50 ml IV Q15MIN PRN PRN Reason: BG <50 OR BG <70 & pt unresponsive Stop: 10/10/24 14:01 Glucagon (Glucagon Inj 1 Mg Vial) 1 mg IM Q15MIN PRN PRN Reason: BG <70, and no IV access Heparin Sodium (Porcine) (Heparin Sod Inj 5000 Unit/Ml Vial) 5,000 unit SC Q12HR DAISY Stop: 09/24/24 20:59 Last Admin: 09/10/24 20:24 Dose: 5,000 unit Sodium Chloride (Ns) 1,000 mls @ 80 mls/hr IV .[id number] ONE Stop: 09/11/24 04:46 Last Admin: 09/10/24 16:49 Dose: 80 mls/hr Insulin Glargine (Insulin Glargine (Lantus) 5 Unit/0.05 Ml (Per 5 Units)) 20 unit SC HS [facility] Stop: 10/10/24 20:59 Last Admin: 09/10/24 20:24 Dose: 20 unit Insulin Human Lispro (Insulin Lispro (Admelog) 1 Unit/0.01 Ml Unit) 0 unit SC ACHS [facility]; Protocol Stop: 10/10/24 16:59 Last Admin: 09/10/24 20:23 Dose: 3 unit Labetalol HCl (Labetalol 100 Mg Tablet) 100 mg PO QDAY [facility] Stop: 10/10/24 18:44 Last Admin: 09/10/24 18:52 Dose: 100 mg Metoclopramide HCl (Metoclopramide Inj 5 Mg/Ml Vial 2 Ml) 5 mg IVP Q6HR [facility]; Protocol Stop: 10/10/24 17:59 Last Admin: 09/10/24 23:14 Dose: 5 mg Pantoprazole Sodium (Pantoprazole Inj 40 Mg Vial) 40 mg IV QDAY [facility] Stop: 10/11/24 08:59 Pyridoxine HCl (Pyridoxine 50 Mg Tablet) 25 mg PO Q8H PRN PRN Reason: nausea and vomiting Stop: 10/11/24 03:29 Sennosides (Senna Tablet) 1 tab PO QDAY [facility]; Protocol Stop: 10/10/24 13:59 Last Admin: 09/10/24 14:20 Dose: 1 tab Discontinued Medications Sodium Chloride (Ns) 1,000 mls @ 200 mls/hr IV .Q5H [facility] Stop: 10/10/24 07:59 Last Admin: 09/10/24 16:39 Dose: Not Given Sodium Chloride (Ns) 2,000 mls @ 1,000 mls/hr IV .Q2H ONE Stop: 09/10/24 09:56 Last Infusion: 09/10/24 10:08 Dose: Infused Sodium Chloride (Ns) 1,000 mls @ 999 mls/hr IV .Q1H1M ONE Stop: 09/10/24 14:20 Last Admin: 09/10/24 14:29 Dose: 999 mls/hr Lactated Ringer's (Lactated Ringers) 1,000 mls @ 999 mls/hr IV .Q1H1M ONE Stop: 09/11/24 03:37 Last Admin: 09/11/24 02:44 Dose: 999 mls/hr Insulin Human Regular (Insulin Hum Regular 1 Unit/0.01 Ml (Per Unit)) 5 unit IV X1 ONE Stop: 09/10/24 13:21 Last Admin: 09/10/24 14:21 Dose: 5 unit Insulin Human Regular (Insulin Hum Regular 1 Unit/0.01 Ml (Per Unit)) 10 unit IV X1 ONE Stop: 09/11/24 02:27 Last Admin: 09/11/24 02:35 Dose: 10 unit Ondansetron HCl (Ondansetron Inj 2 Mg/Ml Inj 2 Ml) 4 mg IV X1 ONE Stop: 09/10/24 07:58 Last Admin: 09/10/24 08:19 Dose: 4 mg Ondansetron HCl (Ondansetron Inj 2 Mg/Ml Inj 2 Ml) 4 mg IV Q6H PRN; Protocol PRN Reason: NAUSEA OR VOMITING Stop: 10/10/24 13:58 Ondansetron HCl (Ondansetron Inj 2 Mg/Ml Inj 2 Ml) 4 mg IV Q6HR PRN; Protocol PRN Reason: NAUSEA OR VOMITING Stop: 10/11/24 01:41 Last Admin: 09/11/24 01:49 Dose: 4 mg Pyridoxine HCl (Pyridoxine 50 Mg Tablet) 50 mg PO X1 ONE Stop: 09/10/24 16:18 Last Admin: 09/10/24 16:59 Dose: Not Given Assessment & Plan Plan 29 year old early female with PMH of DM1 admitted to the floor and upgraded to the ICU for DKA. 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 See Endo section. GI #Intractable nausea and vomiting In the setting of DKA, early - B6 prn - Zofran ENDO #DM1 #Diabetic Ketoacidosis Patient with worsening BHB, hyperglycemia, ketonuria Likely trigger is , poor oral intake; troponin negative - A1c - Insulin ggt and IVF per protocol with Q1H blood sugar checks; when gap closes x 2 transition to SubQ insulin with 2 hour overlap with insulin ggt with food - Replete electrolytes - Renal, lactic acid, VBG Q4H - NPO HEME Leukocytosis In the setting of stress, DKA. Low suspicion for infectious etiology ID No acute problems OBGYN #First trimester LMP 3 weeks ago - OBGYN Following - Avoid teratogenic medications Health Maintenance Disposition: Upgrade to ICU for DKA Diet and fluids: NPO DVT prophylaxis: heparin GI prophylaxis: none Lines: PIV CODE STATUS: FULL I have reviewed and discussed the patient's care with my attending, Dr. Nelda Saldana MD PGY-3 Attending Provider Attestation/Addendum I attest that I was physically present for the evaluation, physical examination, lab and imaging review of the patient with the residents. I discussed the case with the residents and agree with the findings and plans of care as documented above. Patient is a 29 years old female with past medical history of type 1 diabetes mellitus who presented to the ED with complaint of nausea and vomiting. She was also having Hartness of breath, polyuria and decreased oral intake. She was admitted to medical floor for management of mild DKA, hyperglycemia. She was also found to be . Overnight, patient continued to have nausea, she was also started having flushing, abdominal pain, shortness of breath. Patient stated that the symptoms were similar to her symptoms from before when she was diagnosed with DKA. Bedside blood glucose was 297. Labs were obtained, shows WBC of 17.1, increased from 8.9 earlier, sodium 134, chloride 109, glucose 332, hemoglobin A1c 8.0, lactic acid 3.4, beta hydroxybutyrate 4.4., Bicarbonate less than 10, anion gap 15. VBG was obtained, which shows pH of 7.11 with pCO2 of 17. With the new symptoms and lab results, concern for worsening DKA we will transfer the patient to ICU to start her on insulin drip as per DKA protocol. We will continue with IV insulin, electrolyte repletion and monitoring as per DKA protocol. Patient has been seen by REFINERY OPERATOR COKING who recommended to get serial beta-hCG. Added antiemetics for her nausea. Iván Lutz MD
[2024-09-11 04:00] LABS: Glucose Estimated Average 183 mg/dL (80-131)
[2024-09-11 04:11] LABS: Alanine Aminotransferase 10 U/L (10-49); Albumin, Serum 4.1 gm/dL (3.5-5.0); Albumin/Globulin Ratio 1.8 (1.2-2.2); Alkaline Phosphatase 109 U/L (46-116); Anion Gap 15 (7-16); Aspartate Amino Transferase 13 U/L (0-34); BUN/Creatinine Ratio 12 Ratio (12-20); Bilirubin,Total 0.8 mg/dL (0.3-1.2); Blood Urea Nitrogen 11 mg/dL (9-23); Calcium 8.3 mg/dL (8.3-10.6); Calcium (Corrected) 8.3 mg/dL (8.5-10.1); Cardiac Risk Estimate 2.7 RATIO (3.7-5.6); Chloride 109 mMol/L (98-107); Cholesterol 141 mg/dL (132-200); Creatinine (Component) 0.9 mg/dL (0.6-1.3); Estimated Creatinine Clearance 100.8 mL/min (>60); Globulin 2.3 gm/dL (2.3-3.5); Glucose 332 mg/dL (74-106); HDL Cholesterol 52 mg/dL (40-60); LDL Cholesterol,Calculated 74 mg/dL (0-130); Magnesium 1.9 mg/dL (1.6-2.6); Osmolality,Calculated 280 (275-295); Phosphorous 2.4 mg/dL (2.4-5.1); Potassium 4.5 mMol/L (3.4-5.1); Sodium 134 mMol/L (136-145); Thyroid Stimulating Hormone 0.67 uIU/mL (0.55-4.78); Total Protein 6.4 gm/dL (5.7-8.2); Triglycerides 74 mg/dL (30-150); eGFR > 60 See Note
[2024-09-11 04:12] LABS: Carbon Dioxide < 10.0 mMol/L (20.0-31.0)
[2024-09-11] MEDS: POT CHL ADDITIVE 20 MEQ in RINGERS LACTATED 1000 ML 1,000 ML 250 MEQ IV ×2 (05:08→08:11)
[2024-09-11] MEDS: POTASSIUM CHL 10 mEq IVPB 10 MEQ/100 ML BAG 100 MEQ IV (05:10)
[2024-09-11] MEDS: INSULIN REG 100 UNITS/100 ML 100 UNIT in PRE-MIXED 1 BAG 8.8 UNIT IV (05:15)
[2024-09-11 06:39] LABS: Reflex Lactate? Y
[2024-09-11 08:15] LABS: Base Excess, Venous -16 (-3-3); O2 Saturation, Venous 84 % (96-97); PCO2, Venous 22 mmHg (36-56); PO2, Venous 46 mmHg (15-58); pH, Venous 7.24 (7.33-7.66)
[2024-09-11 08:16] LABS: Lactate (Lactic Acid) 2.5 mMol/L (0.4-2.0)
[2024-09-11 08:52] LABS: Albumin, Serum 3.9 gm/dL (3.5-5.0); Anion Gap 14 (7-16); BUN/Creatinine Ratio 11 Ratio (12-20); Blood Urea Nitrogen 10 mg/dL (9-23); Calcium 8.2 mg/dL (8.3-10.6); Calcium (Corrected) 8.3 mg/dL (8.5-10.1); Chloride 111 mMol/L (98-107); Creatinine (Component) 0.9 mg/dL (0.6-1.3); Estimated Creatinine Clearance 93.8 mL/min (>60); Glucose 224 mg/dL (74-106); Magnesium 1.9 mg/dL (1.6-2.6); Osmolality,Calculated 277 (275-295); Phosphorous 1.7 mg/dL (2.4-5.1); Potassium 4.6 mMol/L (3.4-5.1); Sodium 136 mMol/L (136-145); eGFR > 60 See Note
[2024-09-11] MEDS: LABETALOL 100 MG TABLET PO (08:56)
[2024-09-11] MEDS: ENOXAPARIN SOD INJ 40 MG/0.4 ML SYRINGE SC (08:57)
[2024-09-11 09:21] LABS: Carbon Dioxide 10.9 mMol/L (20.0-31.0)
[2024-09-11] MEDS: POT CHL ADDITIVE 20 MEQ in DEXTROSE 5%-LACTATED RINGERS 1,000 ML 250 MEQ IV (09:27)
--- NOTE | 2024-09-11 10:44 | ESPR_ITS ---
<Statement entered by Jacques Verma MD - 09/12/24 16:08> TOTAL CC TIME: 45 MIN I saw and evaluated the patient. I reviewed the resident?s note and agree with findings and plan as documented in the resident?s note. Upon my evaluation, this patient had a high probability of imminent or life- threatening deterioration due to severe DKA which required my direct attention, intervention, and personal management. This time is exclusive of time spent on procedures, which are documented separately if performed. very severe rapid decompensation with severe acidosis - requiring aggressive resuscitation improving clinically with reduced n/v and abd pain post IVFs and Insulin gtt will transition w/ AG and HCO3 w/in acceptable range home dose is 40u lantus but A1C >8 Likely will need more then that VERTICAL PUNCH OPERATOR following as well. Documentation for date of: 09/11/24 Subjective Subjective Interval history: Patient is a 29-year-old female with past medical history of diabetes mellitus type 1 and history of GERD who was admitted on 09/03/2024 for Ketoacidosis. Overnight patient was upgraded to ICU as she developed DKA with elevated lactic acid of 3.4, beta-hydroxybutyrate of 4.4, anion gap of 15 and VBG of 7.11. 09/21/2024 Patient examined at bedside. No pyrexia reported. No bowel movements. Overnight improved nausea and no emesis reported this morning. Improved abdominal tenderness. Patient reported cord overnight but has improved since then. Patient was started on regular insulin drip, at a rate of 0.1 units/kg/h--> total insulin received 45 units. Exam Vital Signs Temp Pulse Resp BP Pulse Ox O2 Del Method FiO2 100.0 F 90 33 H 148/93 H 99 Room Air 99 09/11/24 06:00 09/11/24 08:56 09/11/24 06:00 09/11/24 08:56 09/11/24 06:00 09/11/24 06:00 09/11/24 05:33 Narrative Exam General Appearance: Alert & Oriented X3, well-nourished female who is lying in bed in no acute distress HEENT: Skull symmetrical and atraumatic. Conjunctivae pink and moist. Pupils equal, round, reactive to light and accommodation (PERRL). External ear without lesion or discharge. Cardio: Normal Rate and Rhythm with S1 and S2 heart sounds. No murmurs or extra heart sounds auscultated. No bruits on carotid auscultation. No peripheral edema or cyanosis. Lungs: Symmetric with good expansion. Chest and back non-tender. Breath sounds vesicular without crackles, wheezing or rhonchi Abdomen: Non-tender, Non-distended, Normal Reactive Bowel Sounds, no purapubic tenderness Neuro: Alert, cooperative, oriented to person, place, and time. Speech clear. CN grossly intact. Upper motor strength 5/5 and Lower motor strength 5/5. Sensation intact. Objective Labs 09/11/24 03:13 09/11/24 07:58 Labs: Laboratory Results - last 24 hr 09/10/24 09/10/24 09/10/24 08:20 15:28 19:00 WBC RBC Hgb Hct MCV MCH MCHC RDW Std Deviation Plt Count Neut % (Auto) Lymph % (Auto) [place] % (Auto) Eos % (Auto) Baso % (Auto) Neut # (Auto) Lymph # (Auto) [place] # (Auto) Eos # (Auto) Baso # (Auto) Immature Gran # (Auto) Absolute Nucleated RBC Immature Gran % Nucleated RBC % VBG pH VBG pCO2 VBG pO2 VBG O2 Sat (Marvin) VBG Base Excess Sodium Potassium Chloride Carbon Dioxide Anion Gap BUN Creatinine Estim Creat Clear Calc eGFR BUN/Creatinine Ratio Glucose Estimated Ave Glu mg/dL Hemoglobin A1c Calculated Osmolality Lactic Acid Calcium Corrected Calcium Phosphorus Magnesium Total Bilirubin AST ALT Alkaline Phosphatase Total Protein Albumin Globulin Albumin/Globulin Ratio Triglycerides Cholesterol LDL Cholesterol, Calc HDL Cholesterol Cholesterol/HDL Ratio Beta-Hydroxybutyrate/Acetoacetate TSH Beta HCG, Quant 468 Ur Collection Type Catheter Urine Color Colorless A Urine Clarity Clear Urine pH 6.5 Ur Specific [place] 1.028 Urine Protein 1+ A Urine Glucose (UA) 4+ A Urine Ketones 4+ A Urine Blood Negative Urine Nitrite Negative Urine Bilirubin Negative Urine Urobilinogen (Auto) Negative Ur Leukocyte Esterase Negative Urine RBC 0 Urine WBC 0 Ur Squamous Epith Cells 0 Urine Bacteria None Ur Culture Indicated? Not Indicated Urine HCG, Qual Positive Urine Opiates Screen Negative Urine Fentanyl Screen Negative Ur Barbiturates Screen Negative U Amphetamin/Meth Scrn Negative U Benzodiazepines Scrn Negative U Cocaine Metab Screen Negative U Marijuana (THC) Screen Positive A 05/01/25 05/01/25 03:13 07:58 WBC 17.1 H D RBC 4.66 Hgb 14.0 Hct 41.8 MCV 90 MCH 30.0 MCHC 33.5 RDW Std Deviation 42.0 Plt Count 204 Neut % (Auto) 91 H Lymph % (Auto) 5 L [place] % (Auto) 3 Eos % (Auto) 0 Baso % (Auto) 0 Neut # (Auto) 15.6 H Lymph # (Auto) 0.9 L [place] # (Auto) 0.5 Eos # (Auto) 0.1 Baso # (Auto) 0.0 Immature Gran # (Auto) 0.11 H Absolute Nucleated RBC 0.00 Immature Gran % 1 H Nucleated RBC % 0 VBG pH 7.11 L 7.24 L VBG pCO2 17 L D 22 L VBG pO2 75 H D 46 D VBG O2 Sat (Marvin) 93 L 84 L VBG Base Excess -22 L -16 L Sodium 134 L 136 Potassium 4.5 4.6 Chloride 109 H 111 H Carbon Dioxide < 10.0 L* 10.9 L* Anion Gap 15 14 BUN 11 10 Creatinine 0.9 0.9 Estim Creat Clear Calc 100.8 93.8 eGFR > 60 > 60 BUN/Creatinine Ratio 12 11 L Glucose 332 H D [address] Glu mg/dL 183 H Hemoglobin A1c 8.0 H Calculated Osmolality 280 277 Lactic Acid 3.4 H 2.5 H Calcium 8.3 8.2 L Corrected Calcium 8.3 L 8.3 L Phosphorus 2.4 1.7 L Magnesium 1.9 1.9 Total Bilirubin 0.8 AST 13 ALT 10 Alkaline Phosphatase 109 Total Protein 6.4 Albumin 4.1 3.9 Globulin 2.3 Albumin/Globulin Ratio 1.8 Triglycerides 74 Cholesterol 141 LDL Cholesterol, Calc 74 HDL Cholesterol 52 Cholesterol/HDL Ratio 2.7 L Beta-Hydroxybutyrate/Acetoacetate 4.4 H TSH 0.67 Beta HCG, Quant Ur Collection Type Urine Color Urine Clarity Urine pH Ur Specific [place] Urine Protein Urine Glucose (UA) Urine Ketones Urine Blood Urine Nitrite Urine Bilirubin Urine Urobilinogen (Auto) Ur Leukocyte Esterase Urine RBC Urine WBC Ur Squamous Epith Cells Urine Bacteria Ur Culture Indicated? Urine HCG, Qual Urine Opiates Screen Urine Fentanyl Screen Ur Barbiturates Screen U Amphetamin/Meth Scrn U Benzodiazepines Scrn U Cocaine Metab Screen U Marijuana (THC) Screen ABG Interpretation ABG results: 09/10/24 09/11/24 09/11/24 08:25 03:13 07:58 VBG pH 7.32 L 7.11 L 7.24 L VBG pCO2 33 L 17 L D 22 L VBG pO2 43 75 H D 46 D VBG Base Excess -8 L -22 L -16 L Quality Measures Quality Measures none Assessment & Plan Assessment Current Active Medications: Generic Name Dose Route Start Last Admin Trade Name Freq PRN Reason Stop Dose Admin Acetaminophen 650 mg 09/10/24 13:59 Acetaminophen 325 Mg Tablet PO 10/10/24 13:58 Q6H PRN Mild Pain 1-3 or Fever 100.3 Dextrose 25 ml 09/10/24 14:02 Dextrose 50%-Water Inj 50 Ml Syringe IV 10/10/24 14:01 Q15MIN PRN BG 50-70 responsive npo pt Dextrose 50 ml 09/10/24 14:02 Dextrose 50%-Water Inj 50 Ml Syringe IV 10/10/24 14:01 Q15MIN PRN BG <50 OR BG <70 & pt unresponsive Enoxaparin Sodium 40 mg 09/11/24 09:00 09/11/24 08:57 Enoxaparin Sod Inj 40 Mg/0.4 Ml Syringe SC 09/25/24 08:59 40 mg QDAY DAISY Administration Famotidine 20 mg 09/11/24 10:30 Famotidine 20 Mg Tablet PO 10/11/24 10:29 QDAY DAISY Glucagon 1 mg 09/10/24 14:02 Glucagon Inj 1 Mg Vial IM Q15MIN PRN BG <70, and no IV access Potassium Chloride 10 meq in 100 mls @ 100 mls/hr 09/11/24 03:46 09/11/24 05:10 Kcl Ivpb IV 10/11/24 03:45 100 mls/hr .Q1H PRN Administration IF POTASSIUM LESS THAN 3.3 Magnesium Sulfate 2 gm in 50 mls @ 25 mls/hr 09/11/24 03:46 Magnesium Sulfate Ivpb IV 10/11/24 03:45 .Q2H PRN PER DKA PROTOCOL Insulin Human Regular 100 unit 100 mls @ 9.979 mls/hr 09/11/24 03:46 09/11/24 10:00 / IV Miscellaneous Supplies IV 10/11/24 03:45 0.05 unit/kg/hr .Q10H2M PRN 4.99 mls/hr PER PROTOCOL Titration Protocol 0.1 UNIT/KG/HR Dextrose/Lactated Ringer's 1,000 mls @ 250 mls/hr 09/11/24 03:46 D5-Lr IV 10/11/24 03:45 .Q4H PRN PER PROTOCOL Lactated Ringer's 1,000 mls @ 250 mls/hr 09/11/24 03:46 Lactated Ringers IV 09/12/24 03:45 .Q4H PRN PER PROTOCOL Potassium Chloride 20 meq/ 1,010 mls @ 250 mls/hr 09/11/24 03:46 09/11/24 08:11 Lactated Ringer's IV 10/11/24 03:45 250 mls/hr .Q4H3M PRN Administration K LEVEL 3.3 TO 5.3mM/L Potassium Chloride 40 meq/ 1,020 mls @ 250 mls/hr 09/11/24 03:46 Lactated Ringer's IV 10/11/24 03:45 .Q4H5M PRN K LEVEL < 3.3 mM/L Potassium Chloride 40 meq/ 1,020 mls @ 250 mls/hr 09/11/24 03:46 Dextrose/Lactated Ringer's IV 10/11/24 03:45 .Q4H5M PRN K LEVEL < 3.3mM/L Potassium Chloride 10 meq in 100 mls @ 50 mls/hr 09/11/24 03:46 Kcl Ivpb IV 10/11/24 03:45 PRN PRN K LEVEL 3.3 to 5.3 & BG > 200 Potassium Phosphate 15 mmol in 250 mls @ 62.5 mls/hr 09/11/24 03:46 Pot Phos 15 Mmol In Ns 250 Ml IV 10/11/24 03:45 PRN PRN Phosphate <= 1mg/dL Sodium Phosphate 15 mmol/ 255 mls @ 62.5 mls/hr 09/11/24 03:46 Sodium Chloride IV 10/11/24 03:45 .Q4H5M PRN Phosphate <= 1mg/dL and K> than 5.3 Potassium Chloride 20 meq/ 1,010 mls @ 250 mls/hr 09/11/24 09:03 09/11/24 09:27 Dextrose/Lactated Ringer's IV 10/11/24 09:02 250 mls/hr .Q4H3M PRN Administration K LEVEL 3.3 TO 5.3 mM/L Labetalol HCl 100 mg 09/10/24 18:45 09/11/24 08:56 Labetalol 100 Mg Tablet PO 10/10/24 18:44 100 mg QDAY DAISY Administration Pyridoxine HCl 25 mg 09/11/24 03:18 Pyridoxine 50 Mg Tablet PO 10/11/24 03:29 Q8H PRN nausea and vomiting Sennosides 1 tab 09/10/24 14:00 09/10/24 14:20 Senna Tablet PO 10/10/24 13:59 1 tab QDAY DAISY Administration Protocol Sodium Bicarbonate 50 ml 09/11/24 03:46 Sodium Bicarb Inj 8.4% Syr 50 Ml Syringe IV 10/11/24 03:45 PRN PRN For ph <= to 7.0 Plan Pateint is a 29 year old early female with PMH of DM1 admitted to the floor and upgraded to the ICU for DKA. 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 See Endo section. GI #Intractable nausea and vomiting In the setting of DKA, early vs THC use - B6 prn -Famotidine 20 mg PO qday -Zofran ENDO #Diabetes Mellitus Type 1 #Diabetic Ketoacidosis Patient with worsening BHB, hyperglycemia, ketonuria Likely trigger is , poor oral intake; troponin negative. A1c of 8.0 Plan: - Insulin ggt and IVF per protocol with Q1H blood sugar checks; when gap closes x 2 transition to SubQ insulin with 2 hour overlap with insulin ggt with food - Replete electrolytes - Renal, lactic acid, VBG Q4H - NPO HEME Leukocytosis In the setting of stress, DKA. Low suspicion for infectious etiology ID No acute problems OBGYN #First trimester LMP 3 weeks ago, US does shows no intrauterine gestation w/ suspciious fro retained products of conception. HCG 457 and 468. - OBGYN Following - Avoid teratogenic medications Health Maintenance Disposition: Upgrade to ICU for DKA Diet and fluids: NPO DVT prophylaxis: heparin GI prophylaxis: none Lines: PIV CODE STATUS: FULL - The patient's plan was discussed with attending Dr. Luci Irwin MD PGY1 Internal Medicine
[2024-09-11 11:11] LABS: Reflex Lactate? Y
[2024-09-11] MEDS: SENNA TABLET 1 TAB PO (11:53)
[2024-09-11] MEDS: FAMOTIDINE 20 MG TABLET PO (11:54)
[2024-09-11 12:07] LABS: HCG,Qualitative Serum Positive
[2024-09-11 12:31] LABS: Lactate (Lactic Acid) 1.4 mMol/L (0.4-2.0)
[2024-09-11 12:32] LABS: Base Excess, Venous -10 (-3-3); O2 Saturation, Venous 84 % (96-97); PCO2, Venous 29 mmHg (36-56); PO2, Venous 45 mmHg (15-58); pH, Venous 7.31 (7.33-7.66)
[2024-09-11 12:55] LABS: Albumin, Serum 3.6 gm/dL (3.5-5.0); Anion Gap 10 (7-16); BUN/Creatinine Ratio 11 Ratio (12-20); Blood Urea Nitrogen 9 mg/dL (9-23); Calcium 8.1 mg/dL (8.3-10.6); Calcium (Corrected) 8.4 mg/dL (8.5-10.1); Carbon Dioxide 15.6 mMol/L (20.0-31.0); Chloride 112 mMol/L (98-107); Creatinine (Component) 0.8 mg/dL (0.6-1.3); Estimated Creatinine Clearance 105.6 mL/min (>60); Glucose 217 mg/dL (74-106); Magnesium 1.8 mg/dL (1.6-2.6); Osmolality,Calculated 281 (275-295); Phosphorous 1.3 mg/dL (2.4-5.1); Potassium 4.7 mMol/L (3.4-5.1); Sodium 138 mMol/L (136-145); eGFR > 60 See Note
[2024-09-11] MEDS: POT CHL ADDITIVE 20 MEQ in RINGERS LACTATED 1000 ML 1,000 ML 200 MEQ IV (14:10)
--- NOTE | 2024-09-11 14:37 | PC.NURSE ---
at [address] at 206[address] Dr. Beth insulin gtt not increased and fluids decreased to 200 ml hour, Dr. Beth and Dr. Travis aware patient fluids are 20meq potassium in LR
[2024-09-11 15:12] LABS: Beta HCG,Quantitative 554 mIU/mL (<5.0)
[2024-09-11] MEDS: POT CHL ADDITIVE 20 MEQ in DEXTROSE 5%-LACTATED RINGERS 1,000 ML 200 MEQ IV (15:20)
--- NOTE | 2024-09-11 15:54 | PC.SS ---
Update: Labs pending. Patient on room air. NPO. No flanagan catheter in place.
[2024-09-11 16:01] LABS: Lactate (Lactic Acid) 1.6 mMol/L (0.4-2.0)
[2024-09-11 16:27] LABS: Albumin, Serum 3.5 gm/dL (3.5-5.0); Anion Gap 10 (7-16); BUN/Creatinine Ratio 9 Ratio (12-20); Blood Urea Nitrogen 7 mg/dL (9-23); Calcium (Corrected) 8.4 mg/dL (8.5-10.1); Carbon Dioxide 16.9 mMol/L (20.0-31.0); Chloride 113 mMol/L (98-107); Creatinine (Component) 0.8 mg/dL (0.6-1.3); Estimated Creatinine Clearance 105.6 mL/min (>60); Glucose 164 mg/dL (74-106); Magnesium 1.6 mg/dL (1.6-2.6); Osmolality,Calculated 281 (275-295); Potassium 4.1 mMol/L (3.4-5.1); Sodium 140 mMol/L (136-145); eGFR > 60 See Note
--- NOTE | 2024-09-11 16:28 | PC.SS ---
INFORMATION SECURITY conducted bedside contact with the patient conduct initial assessment and to discuss discharge planning.? Patient confirmed demographic information.? Patient resides at home with partner, Melquiades Martinez .? Patient does not utilize any form of DME to assist with ambulation.? Patient does not utilize home oxygen.? Patient describes the ability to complete ADL?s independently.? Patient identified partner, Melquiades Martinez; as medical surrogate decision maker.? Patient?s PCP is Cori Prabhakar.? Patient does not participate with dialysis.? Patient possesses history of diabetes, insulin dependent.? Patient in possession of [employer].? Patient utilizes [facility] for medication services.? Plan is for the patient to return home at the time of discharge.? Family will provide transportation on behalf of the patient. ?No further discharge needs identified by the patient.? No further intervention required at this time, geriatric social worker will be available to address any further concerns.? Next of Kin: Melquiades Martinez D/C Plan: Home
[2024-09-11] MEDS: Magnesium Sulfate 2 GM Ivpb 2 GM/50 ML BAG IV (17:25)
[2024-09-11] MEDS: POT PHOS 15 mMol in NS 250 ML 15 MMOL/250 ML BAG 62.5 MMOL IV (17:37)
[2024-09-11] MEDS: METOCLOPRAMIDE INJ 5 MG/ML VIAL 2 ML IVP (20:09)
[2024-09-11 20:51] LABS: Albumin, Serum 3.8 gm/dL (3.5-5.0); Anion Gap 8 (7-16); BUN/Creatinine Ratio 9 Ratio (12-20); Blood Urea Nitrogen 6 mg/dL (9-23); Calcium (Corrected) 8.2 mg/dL (8.5-10.1); Carbon Dioxide 16.9 mMol/L (20.0-31.0); Chloride 110 mMol/L (98-107); Creatinine (Component) 0.7 mg/dL (0.6-1.3); Estimated Creatinine Clearance 120.7 mL/min (>60); Glucose 151 mg/dL (74-106); Magnesium 2.1 mg/dL (1.6-2.6); Osmolality,Calculated 270 (275-295); Phosphorous 1.5 mg/dL (2.4-5.1); Sodium 135 mMol/L (136-145); eGFR > 60 See Note
[2024-09-11] MEDS: POT CHL ADDITIVE 20 MEQ in DEXTROSE 5%-LACTATED RINGERS 1,000 ML 150 MEQ IV (22:50)
[2024-09-11] MEDS: INSULIN REG 100 UNITS/100 ML 100 UNIT in PRE-MIXED 1 BAG IV (23:00)
[2024-09-12] VITALS (16 sets, daily range): BP systolic 127–161; BP diastolic 68–97; PULSE 79–96; RESP 1–34; TEMP 36.3–37.3; O2SAT 97–100; BMI 36.6
[2024-09-12] MEDS: METOCLOPRAMIDE INJ 5 MG/ML VIAL 2 ML IVP (00:03)
[2024-09-12 01:13] LABS: Albumin, Serum 3.5 gm/dL (3.5-5.0); Anion Gap 10 (7-16); BUN/Creatinine Ratio 9 Ratio (12-20); Blood Urea Nitrogen 6 mg/dL (9-23); Calcium 7.5 mg/dL (8.3-10.6); Calcium (Corrected) 7.9 mg/dL (8.5-10.1); Carbon Dioxide 19.6 mMol/L (20.0-31.0); Chloride 111 mMol/L (98-107); Creatinine (Component) 0.7 mg/dL (0.6-1.3); Estimated Creatinine Clearance 120.7 mL/min (>60); Glucose 152 mg/dL (74-106); Magnesium 1.7 mg/dL (1.6-2.6); Osmolality,Calculated 281 (275-295); Phosphorous 1.4 mg/dL (2.4-5.1); Potassium 3.8 mMol/L (3.4-5.1); Sodium 141 mMol/L (136-145); eGFR > 60 See Note
--- NOTE | 2024-09-12 01:33 | PD.RESEVENT ---
Documentation for date of: 09/12/24 Event Note Event Note: Patient's metabolic acidosis is improved with most recent bicarb at 19.6. Will transition the patient over to subcutaneous insulin and based on 2.5 units/h which she has been receiving for the last few hours it would equal 60 units over 24 hours. Will give 30 units of long-acting insulin x 1 now and 10 units of mealtime insulin prior to meals along with sliding scale insulin. Will order 30 units for bedtime tonight as well. Will discontinue insulin drip in 1 hour following subcutaneous insulin based on DKA protocol. Sandie Mata M.D. PGY-3
[2024-09-12] MEDS: INSULIN GLARGINE (Lantus) 5 UNIT/0.05 ML (PER 5 UNITS) 30 UNIT SC ×2 (02:00→20:33)
[2024-09-12 05:21] LABS: Basophils % (Auto) 0 % (0-2.5); Eosinophils # (Auto) 0.1 Thou/mm3 (0.0-0.5); Eosinophils % (Auto) 1 % (0-10); Hematocrit 39.2 % (36.0-46.0); Hemoglobin 13.5 g/dL (12.0-16.0); Immature Granulocytes % (Auto) 0 % (0-0); Immature Granulocytes Auto 0.04 Thou/mm3 (0.00-0.00); Lymphocytes # (Auto) 1.6 Thou/mm3 (1.0-4.8); Lymphocytes % (Auto) 17 % (10-50); Mean Corpuscular HGB Conc 34.4 g/dl (31.0-37.0); Mean Corpuscular Hemoglobin 29.9 pg (25.0-35.0); Mean Corpuscular Volume 87 fL (80-100); Monocytes # (Auto) 0.4 Thou/mm3 (0.0-0.8); Monocytes % (Auto) 4 % (0-12); Neutrophils # (Auto) 7.4 Thou/mm3 (1.8-7.7); Neutrophils % (Auto) 78 % (37-80); Nucleated Red Blood Cell % 0 /100 WBC (0); Platelet Count 193 Thou/mm3 (140-440); Red Blood Count 4.52 Miln/mm3 (4.00-5.20); White Blood Count 9.6 Thou/mm3 (3.6-11.0)
[2024-09-12 05:52] LABS: Beta Hydroxybutyrate 2.4 mmol/L (<0.6)
[2024-09-12 06:02] LABS: Alanine Aminotransferase 7 U/L (10-49); Albumin, Serum 3.7 gm/dL (3.5-5.0); Albumin/Globulin Ratio 1.7 (1.2-2.2); Alkaline Phosphatase 96 U/L (46-116); Anion Gap 12 (7-16); Aspartate Amino Transferase 10 U/L (0-34); BUN/Creatinine Ratio 8 Ratio (12-20); Bilirubin,Total 0.6 mg/dL (0.3-1.2); Blood Urea Nitrogen < 5 mg/dL (9-23); Calcium 7.9 mg/dL (8.3-10.6); Calcium (Corrected) 8.1 mg/dL (8.5-10.1); Chloride 107 mMol/L (98-107); Creatinine (Component) 0.6 mg/dL (0.6-1.3); Estimated Creatinine Clearance 140.8 mL/min (>60); Globulin 2.2 gm/dL (2.3-3.5); Glucose 157 mg/dL (74-106); Magnesium 1.8 mg/dL (1.6-2.6); Osmolality,Calculated 277 (275-295); Phosphorous 1.5 mg/dL (2.4-5.1); Potassium 3.6 mMol/L (3.4-5.1); Sodium 139 mMol/L (136-145); Total Protein 5.9 gm/dL (5.7-8.2); eGFR > 60 See Note
[2024-09-12] MEDS: INSULIN LISPRO (AdmeLOG) 1 UNIT/0.01 ML UNIT 10 UNIT SC ×3 (07:40→17:38)
[2024-09-12] MEDS: INSULIN LISPRO (AdmeLOG) 1 UNIT/0.01 ML UNIT SC ×3 (07:42→17:37)
--- NOTE | 2024-09-12 08:00 | PD.RESPROC ---
Procedures Procedure Date / Time 09/12/24 [id number]
[2024-09-12] MEDS: SENNA TABLET 1 TAB PO (08:35)
[2024-09-12] MEDS: ENOXAPARIN SOD INJ 40 MG/0.4 ML SYRINGE SC (08:35)
[2024-09-12] MEDS: FAMOTIDINE 20 MG TABLET PO (08:35)
[2024-09-12] MEDS: LABETALOL 100 MG TABLET 200 MG PO (08:36)
[2024-09-12 08:40] LABS: Albumin, Serum 3.8 gm/dL (3.5-5.0); Anion Gap 12 (7-16); BUN/Creatinine Ratio 8 Ratio (12-20); Blood Urea Nitrogen 5 mg/dL (9-23); Calcium 8.1 mg/dL (8.3-10.6); Calcium (Corrected) 8.3 mg/dL (8.5-10.1); Carbon Dioxide 19.8 mMol/L (20.0-31.0); Chloride 105 mMol/L (98-107); Creatinine (Component) 0.6 mg/dL (0.6-1.3); Estimated Creatinine Clearance 140.8 mL/min (>60); Glucose 226 mg/dL (74-106); Magnesium 1.8 mg/dL (1.6-2.6); Osmolality,Calculated 278 (275-295); Phosphorous 1.4 mg/dL (2.4-5.1); Potassium 3.9 mMol/L (3.4-5.1); Sodium 137 mMol/L (136-145); eGFR > 60 See Note
[2024-09-12] MEDS: CALCIUM GLUC/NS 1000MG IVPB 1,000 MG/50 ML BAG 50 MG IV (09:29)
[2024-09-12] MEDS: PYRIDOXINE 50 MG TABLET PO (11:26)
--- NOTE | 2024-09-12 15:33 | ESPR_ITS ---
<Statement entered by Patricia Glynn MD - 09/18/24 14:45> I reviewed above note and agree with findings and plans. I have also personally examined the patient with medicine team and went over assessment and plan with medical team including architect internship and resident physician. Documentation for date of: 09/12/24 Subjective Subjective Interval history: Received ICU downgrade from ICU team. Patient is a 29-year-old female with past medical history of type 1 diabetes, history of multiple DKA episodes, GERD who was admitted for ketoacidosis. Later was found to have DKA and was upgraded to ICU. Patient had DKA protocol including potassium repletion, insulin drip, and aggressive IV hydration after which anion gap is closed and was transition to subcu insulin. Patient was evaluated in the ICU currently tolerating diet no nausea no vomiting no abdominal pain noted. Was given CGM for continuous glucose monitoring. If patient remains stable we will continue to monitor at this time and possible discharge in the next 24-48 hours. Exam Vital Signs Temp Pulse Resp BP Pulse Ox O2 Del Method FiO2 97.4 F 88 24 H 133/81 H 100 Room Air 99 09/12/24 12:02 09/12/24 13:00 09/12/24 13:00 09/12/24 09:00 09/12/24 13:00 09/12/24 12:02 09/11/24 05:33 Narrative Exam Physical Exam GENERAL: NAD, AAOx3 HEENT: Moist mucosa. Eyes open, symmetrical, & clear CARDIO: Heart RRR, no obvious murmurs PULM: No noted coughing/dyspnea CTA B/L, no R/W/R GI: Abdomen soft, nondistended, no pain on palpation. BSx4 SKIN/MSK/EXT: No wounds/rashes/edema/amputations, no pain on palpation. Pedal pulses present B/L NEURO: AAOx3, no focal neuro deficits, able to move all 4 extremities Objective Labs 09/12/24 04:35 09/12/24 07:55 Labs: Laboratory Results - last 24 hr 09/11/24 09/11/24 09/12/24 15:52 20:21 00:35 WBC RBC Hgb Hct MCV MCH MCHC RDW Std Deviation Plt Count Neut % (Auto) Lymph % (Auto) [place] % (Auto) Eos % (Auto) Baso % (Auto) Neut # (Auto) Lymph # (Auto) [place] # (Auto) Eos # (Auto) Baso # (Auto) Immature Gran # (Auto) Absolute Nucleated RBC Immature Gran % Nucleated RBC % Sodium 140 135 L 141 Potassium 4.1 D 4.0 3.8 Chloride 113 H 110 H 111 H Carbon Dioxide 16.9 L 16.9 L 19.6 L Anion Gap 10 8 10 BUN 7 L 6 L 6 L Creatinine 0.8 0.7 0.7 Estim Creat Clear Calc 105.6 120.7 120.7 eGFR > 60 > 60 > 60 BUN/Creatinine Ratio 9 L 9 L 9 L Glucose 164 H D 151 H 152 H Calculated Osmolality 281 270 L 281 Lactic Acid 1.6 Calcium 8.0 L 8.0 L 7.5 L Corrected Calcium 8.4 L 8.2 L 7.9 L Phosphorus 1.0 L 1.5 L 1.4 L Magnesium 1.6 2.1 1.7 Total Bilirubin AST ALT Alkaline Phosphatase Total Protein Albumin 3.5 3.8 3.5 Globulin Albumin/Globulin Ratio Beta-Hydroxybutyrate/Acetoacetate 09/12/24 09/12/24 04:35 07:55 WBC 9.6 D RBC 4.52 Hgb 13.5 Hct 39.2 MCV 87 MCH 29.9 MCHC 34.4 RDW Std Deviation 40.0 Plt Count 193 Neut % (Auto) 78 Lymph % (Auto) 17 [place] % (Auto) 4 Eos % (Auto) 1 Baso % (Auto) 0 Neut # (Auto) 7.4 Lymph # (Auto) 1.6 [place] # (Auto) 0.4 Eos # (Auto) 0.1 Baso # (Auto) 0.0 Immature Gran # (Auto) 0.04 H Absolute Nucleated RBC 0.00 Immature Gran % 0 Nucleated RBC % 0 Sodium 139 137 Potassium 3.6 3.9 Chloride 107 105 Carbon Dioxide 20.0 19.8 L Anion Gap 12 12 BUN < 5 L 5 L Creatinine 0.6 0.6 Estim Creat Clear Calc 140.8 140.8 eGFR > 60 > 60 BUN/Creatinine Ratio 8 L 8 L Glucose 157 H 226 H D Calculated Osmolality 277 278 Lactic Acid Calcium 7.9 L 8.1 L Corrected Calcium 8.1 L 8.3 L Phosphorus 1.5 L 1.4 L Magnesium 1.8 1.8 Total Bilirubin 0.6 AST 10 ALT 7 L Alkaline Phosphatase 96 Total Protein 5.9 Albumin 3.7 3.8 Globulin 2.2 L Albumin/Globulin Ratio 1.7 Beta-Hydroxybutyrate/Acetoacetate 2.4 H ABG Interpretation ABG results: 09/10/24 09/11/24 09/11/24 08:25 03:13 07:58 VBG pH 7.32 L 7.11 L 7.24 L VBG pCO2 33 L 17 L D 22 L VBG pO2 43 75 H D 46 D VBG Base Excess -8 L -22 L -16 L 09/11/24 12:10 VBG pH 7.31 L VBG pCO2 29 L VBG pO2 45 VBG Base Excess -10 L Quality Measures Quality Measures none Assessment & Plan Assessment Current Active Medications: Generic Name Dose Route Start Last Admin Trade Name Freq PRN Reason Stop Dose Admin Acetaminophen 650 mg 09/10/24 13:59 Acetaminophen 325 Mg Tablet PO 10/10/24 13:58 Q6H PRN Mild Pain 1-3 or Fever 100.3 Enoxaparin Sodium 40 mg 09/11/24 09:00 09/12/24 08:35 Enoxaparin Sod Inj 40 Mg/0.4 Ml Syringe SC 09/25/24 08:59 40 mg QDAY DAISY Administration Famotidine 20 mg 09/11/24 10:30 09/12/24 08:35 Famotidine 20 Mg Tablet PO 10/11/24 10:29 20 mg QDAY DAISY Administration Insulin Glargine 30 unit 09/12/24 21:00 Insulin Glargine (Lantus) 5 Unit/0.05 Ml (Per 5 Units) PA 10/12/24 20:59 HS [facility] Insulin Human Lispro 10 unit 09/12/24 07:30 09/12/24 12:55 Insulin Lispro (Admelog) 1 Unit/0.01 Ml Unit SC 10/12/24 07:29 10 unit AC [facility] Administration Insulin Human Lispro 0 unit 09/12/24 07:30 09/12/24 12:56 Insulin Lispro (Admelog) 1 Unit/0.01 Ml Unit SC 10/12/24 07:29 3 unit AC [facility] Administration Protocol Labetalol HCl 200 mg 09/12/24 09:00 09/12/24 08:36 Labetalol 100 Mg Tablet PO 10/12/24 08:59 200 mg QDAY DAISY Administration Pyridoxine HCl 50 mg 09/12/24 10:45 09/12/24 11:26 Pyridoxine 50 Mg Tablet PO 10/12/24 10:44 50 mg QDAY DAISY Administration Sennosides 1 tab 09/10/24 14:00 09/12/24 08:35 Senna Tablet PO 10/10/24 13:59 1 tab QDAY DAISY Administration Protocol Plan Pateint is a 29 year old early female with PMH of DM1 admitted to the floor and upgraded to the ICU for DKA. #Diabetes Mellitus Type 1 #Diabetic Ketoacidosis-resolved -glargine 30u - ssi - hypoglycemia protocol in place #Hypertension - Labetolol 100 mg qday #First trimester LMP 3 weeks ago, US does shows no intrauterine gestation w/ suspciious fro retained products of conception. HCG 457 and 468. - f/u as outpatient with her OBGYN in [place] #Lactic acidosis-resolved #Metabolic acidosis, anion gap-resolved #Intractable nausea and vomiting-resolved #Leukocytosis-resolved Case discussed with my senior Dr. Chau and my attending Dr. Gretta Hines MD PGY-1 Health Maintenance Disposition: downgraded to the floors Diet and fluids: carb conssitent DVT prophylaxis: heparin GI prophylaxis: none Lines: PIV CODE STATUS: FULL LPatient examined and case discussed with the team including attending physician. Note reviewed, I agree with the care plan as documented. Ms. berg is a pleasant 29-year-old female with past medical history of type 1 diabetes mellitus. She was admitted for diabetic ketoacidosis, and was being treated in the ICU. She will be downgraded to medical floors on 09/13/2024 for continued care. Patient is currently stable on glargine 30 units at bedtime (home dose 30 units ) and lispro sliding scale. Blood glucose trending in 200s. Mild hypophosphatemia noted, otherwise electrolytes within normal limits. Hospitalist team to take over care after midnight. - Yeison Chau MD, PGY 2 Disclaimer: The document may contain phonetic/typographic errors due to voice recognition software. These errors are purely due to imperfections in the software program and should not be misconstrued in any way to compromise the substance of the patient's medical care during this visit. L
--- NOTE | 2024-09-12 17:00 | PD.RESPRO ---
Documentation for date of: 09/12/24 Subjective Subjective Interval history: Overnight, patient was taken off insulin drip, with total insulin requirements of 60 units within the last 24 hours. Started on 30 units glargine and 10 units TID. Patient will benefit from new CGM reader as her phone has not been able to pair with device for several weeks now. Patient will likley be downgraded today. Exam Vital Signs Temp Pulse Resp BP Pulse Ox O2 Del Method FiO2 98.3 F 89 17 127/87 H 98 Room Air 99 09/12/24 20:00 09/12/24 20:00 09/12/24 20:00 09/12/24 20:00 09/12/24 20:00 09/12/24 20:00 09/11/24 05:33 Narrative Exam General Appearance: Alert & Oriented X3, well-nourished female who is lying in bed in no acute distress HEENT: Skull symmetrical and atraumatic. Conjunctivae pink and moist. Pupils equal, round, reactive to light and accommodation (PERRL). External ear without lesion or discharge. Cardio: Normal Rate and Rhythm with S1 and S2 heart sounds. No murmurs or extra heart sounds auscultated. No bruits on carotid auscultation. No peripheral edema or cyanosis. Lungs: Symmetric with good expansion. Chest and back non-tender. Breath sounds vesicular without crackles, wheezing or rhonchi Abdomen: Non-tender, Non-distended, Normal Reactive Bowel Sounds, no purapubic tenderness Neuro: Alert, cooperative, oriented to person, place, and time. Speech clear. CN grossly intact. Upper motor strength 5/5 and Lower motor strength 5/5. Sensation intact. Objective Labs 09/13/24 04:39 09/13/24 04:39 Labs: Laboratory Results - last 24 hr 09/12/24 09/12/24 09/12/24 00:35 04:35 07:55 WBC 9.6 D RBC 4.52 Hgb 13.5 Hct 39.2 MCV 87 MCH 29.9 MCHC 34.4 RDW Std Deviation 40.0 Plt Count 193 Neut % (Auto) 78 Lymph % (Auto) 17 [place] % (Auto) 4 Eos % (Auto) 1 Baso % (Auto) 0 Neut # (Auto) 7.4 Lymph # (Auto) 1.6 [place] # (Auto) 0.4 Eos # (Auto) 0.1 Baso # (Auto) 0.0 Immature Gran # (Auto) 0.04 H Absolute Nucleated RBC 0.00 Immature Gran % 0 Nucleated RBC % 0 Sodium 141 139 137 Potassium 3.8 3.6 3.9 Chloride 111 H 107 105 Carbon Dioxide 19.6 L 20.0 19.8 L Anion Gap 10 12 12 BUN 6 L < 5 L 5 L Creatinine 0.7 0.6 0.6 Estim Creat Clear Calc 120.7 140.8 140.8 eGFR > 60 > 60 > 60 BUN/Creatinine Ratio 9 L 8 L 8 L Glucose 152 H 157 H 226 H D Calculated Osmolality 281 277 278 Calcium 7.5 L 7.9 L 8.1 L Corrected Calcium 7.9 L 8.1 L 8.3 L Phosphorus 1.4 L 1.5 L 1.4 L Magnesium 1.7 1.8 1.8 Total Bilirubin 0.6 AST 10 ALT 7 L Alkaline Phosphatase 96 Total Protein 5.9 Albumin 3.5 3.7 3.8 Globulin 2.2 L Albumin/Globulin Ratio 1.7 Beta-Hydroxybutyrate/Acetoacetate 2.4 H ABG Interpretation ABG results: 09/10/24 09/11/24 09/11/24 08:25 03:13 07:58 VBG pH 7.32 L 7.11 L 7.24 L VBG pCO2 33 L 17 L D 22 L VBG pO2 43 75 H D 46 D VBG Base Excess -8 L -22 L -16 L 09/11/24 12:10 VBG pH 7.31 L VBG pCO2 29 L VBG pO2 45 VBG Base Excess -10 L Quality Measures Quality Measures none Assessment & Plan Assessment Current Active Medications: Generic Name Dose Route Start Last Admin Trade Name Freq PRN Reason Stop Dose Admin Acetaminophen 650 mg 09/10/24 13:59 Acetaminophen 325 Mg Tablet PO 10/10/24 13:58 Q6H PRN Mild Pain 1-3 or Fever 100.3 Enoxaparin Sodium 40 mg 09/11/24 09:00 09/12/24 08:35 Enoxaparin Sod Inj 40 Mg/0.4 Ml Syringe SC 09/25/24 08:59 40 mg QDAY DAISY Administration Famotidine 20 mg 09/11/24 10:30 09/12/24 08:35 Famotidine 20 Mg Tablet PO 10/11/24 10:29 20 mg QDAY DAISY Administration Insulin Glargine 30 unit 09/12/24 21:00 09/12/24 20:33 Insulin Glargine (Lantus) 5 Unit/0.05 Ml (Per 5 Units) SC 10/12/24 20:59 30 unit HS DAISY Administration Insulin Human Lispro 10 unit 09/12/24 07:30 09/12/24 17:38 Insulin Lispro (Admelog) 1 Unit/0.01 Ml Unit SC 10/12/24 07:29 10 unit AC DAISY Administration Insulin Human Lispro 0 unit 09/12/24 07:30 09/12/24 17:37 Insulin Lispro (Admelog) 1 Unit/0.01 Ml Unit SC 10/12/24 07:29 2 unit AC DAISY Administration Protocol Labetalol HCl 200 mg 09/12/24 09:00 09/12/24 08:36 Labetalol 100 Mg Tablet PO 10/12/24 08:59 200 mg QDAY DAISY Administration Pyridoxine HCl 50 mg 09/12/24 10:45 09/12/24 11:26 Pyridoxine 50 Mg Tablet PO 10/12/24 10:44 50 mg QDAY DAISY Administration Sennosides 1 tab 09/10/24 14:00 09/12/24 08:35 Senna Tablet PO 10/10/24 13:59 1 tab QDAY DAISY Administration Protocol Plan Pateint is a 29 year old early female with PMH of DM1 admitted to the floor and upgraded to the ICU for DKA. 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 See Endo section. GI #Intractable nausea and vomiting, resolved. In the setting of DKA, early vs THC use - B6 prn -Famotidine 20 mg PO qday -Zofran ENDO #Diabetes Mellitus Type 1 #Diabetic Ketoacidosis, resolved Patient with worsening BHB, hyperglycemia, ketonuria Medication non-compliance and poor oral intake; troponin negative. A1c of 8.0 Plan: - Glargine 30 units, and scheduled 10 units TID - Replete electrolytes -clear consistent low HEME Leukocytosis In the setting of stress, DKA. Low suspicion for infectious etiology ID No acute problems OBGYN #First trimester LMP 3 weeks ago, US does shows no intrauterine gestation w/ suspciious fro retained products of conception. HCG 457 and 468, has not doubled within the last two days. Upon discharge follow RADIO TELEVISION ANNOUNCER servicewith Dr. Ramos in [place] as needed - OBGYN Following - Avoid teratogenic medications Health Maintenance Disposition: downgrade to morning call team Diet and fluids: clear liquid diet, transition to carb consistent low. DVT prophylaxis: heparin GI prophylaxis: none Lines: PIV CODE STATUS: FULL - The patient's plan was discussed with attending Dr. Sagar Irwin MD PGY1 Internal Medicine Attending Provider Attestation/Addendum Patient seen and examined with above resident, Nataliia Irwin MD. I agree with the findings, assessment, and plan of care as documented except for any differences below. Patient with resolution of DKA and appropriately transitioned overnight to regimen based on home medications. Likely will need additional titration in the coming days. Patient will need follow-up with OB given recent nonviable and persistent HCG elevation. We have elected to not intervene at this point based on studies during hospital course. No retained products may be present, there is no evidence of infection warranting immediate intervention. Extensive counseling appreciated from OB. Total critical care time: I personally spent 30 minutes for review of physiologic parameters, directing plan of care time today, coordination of care with other specialist, and counseling patient at bedside. This is exclusive of time spent teaching housestaff performing any separate billable procedures. Patient remains at significant risk for further morbidity and mortality warranting close monitoring and care only available in the ICU. She required critical care services for diabetic ketoacidosis without coma.
--- NOTE | 2024-09-12 20:36 | PC.NURSE ---
Notify of pt. blood sugar 88. MD Kovacs said it's okay to give the scheduled 30u of Lantus and just to skip the morning dose of Lispro.
[2024-09-13] VITALS (7 sets, daily range): BP systolic 120–154; BP diastolic 62–94; PULSE 78–113; RESP 15–18; TEMP 36.4–37; O2SAT 97–99; BMI 36.9
[2024-09-13 05:56] LABS: Basophils % (Auto) 1 % (0-2.5); Eosinophils % (Auto) 0 % (0-10); Hematocrit 37.8 % (36.0-46.0); Hemoglobin 13.2 g/dL (12.0-16.0); Immature Granulocytes % (Auto) 0 % (0-0); Immature Granulocytes Auto 0.01 Thou/mm3 (0.00-0.00); Lymphocytes # (Auto) 2.3 Thou/mm3 (1.0-4.8); Lymphocytes % (Auto) 41 % (10-50); Mean Corpuscular HGB Conc 34.9 g/dl (31.0-37.0); Mean Corpuscular Hemoglobin 29.8 pg (25.0-35.0); Mean Corpuscular Volume 85 fL (80-100); Monocytes # (Auto) 0.4 Thou/mm3 (0.0-0.8); Monocytes % (Auto) 7 % (0-12); Neutrophils # (Auto) 2.8 Thou/mm3 (1.8-7.7); Neutrophils % (Auto) 51 % (37-80); Nucleated Red Blood Cell % 0 /100 WBC (0); Platelet Count 151 Thou/mm3 (140-440); RDW Standard Deviation 39.1 fL (36.4-46.3); Red Blood Count 4.43 Miln/mm3 (4.00-5.20); White Blood Count 5.5 Thou/mm3 (3.6-11.0)
[2024-09-13 06:40] LABS: Alanine Aminotransferase 9 U/L (10-49); Albumin, Serum 3.5 gm/dL (3.5-5.0); Albumin/Globulin Ratio 1.8 (1.2-2.2); Alkaline Phosphatase 88 U/L (46-116); Anion Gap 9 (7-16); Aspartate Amino Transferase 14 U/L (0-34); BUN/Creatinine Ratio 8 Ratio (12-20); Bilirubin,Total 0.5 mg/dL (0.3-1.2); Blood Urea Nitrogen 5 mg/dL (9-23); Calcium 8.1 mg/dL (8.3-10.6); Calcium (Corrected) 8.5 mg/dL (8.5-10.1); Carbon Dioxide 26.7 mMol/L (20.0-31.0); Chloride 108 mMol/L (98-107); Creatinine (Component) 0.6 mg/dL (0.6-1.3); Estimated Creatinine Clearance 141.5 mL/min (>60); Glucose 140 mg/dL (74-106); Magnesium 1.8 mg/dL (1.6-2.6); Osmolality,Calculated 286 (275-295); Sodium 144 mMol/L (136-145); Total Protein 5.5 gm/dL (5.7-8.2); eGFR > 60 See Note
[2024-09-13] MEDS: NAPH,KPH MBDB 1 PACKET (1.5 GM) PO (09:16)
[2024-09-13] MEDS: Magnesium Sulfate 2 GM Ivpb 2 GM/50 ML BAG IV (09:16)
[2024-09-13] MEDS: POTASSIUM CHLORIDE 20 mEq TABCR PO (09:17)
[2024-09-13] MEDS: POTASSIUM CHLORIDE 20 mEq TABCR 40 MEQ PO (09:17)
[2024-09-13] MEDS: LABETALOL 100 MG TABLET 200 MG PO (09:18)
[2024-09-13] MEDS: ENOXAPARIN SOD INJ 40 MG/0.4 ML SYRINGE SC (09:18)
[2024-09-13] MEDS: FAMOTIDINE 20 MG TABLET PO (09:18)
[2024-09-13] MEDS: PYRIDOXINE 50 MG TABLET PO (09:37)
[2024-09-13] MEDS: INSULIN LISPRO (AdmeLOG) 1 UNIT/0.01 ML UNIT 10 UNIT SC (12:19)
[2024-09-13] MEDS: INSULIN LISPRO (AdmeLOG) 1 UNIT/0.01 ML UNIT SC (12:19)
--- NOTE | 2024-09-13 16:27 | ESDS_ITS ---
<Statement entered by Patricia Glynn MD - 09/18/24 14:47> I reviewed above note and agree with findings and plans. I have also personally examined the patient with medicine team and went over assessment and plan with medical team including marketing operations intern and resident physician. Planned Discharge Date 09/13/24 DS: Providers Provider Date of admission: 09/11/24 07:56 Primary care physician: Cori Prabhakar PA-C Admitting Provider: Martha Hyatt DO Attending Provider on Admission: Yuri Cobb MD Consults: 09/10/24 15:21 Consult to Obstetrics Routine Comment: Consulting Provider: Maya ([facility])Rika 09/12/24 08:51 Referral Registered Dietitian Routine Comment: needs cgm Attending Provider on DC: Cosme Tariq MD Discharging Provider: Cosme Tariq MD DS: Diagnosis Problem List Completed Was Problem List Reviewed/Reconciled?: Yes Hospital Course Hospital Course Hospital course: A 29-year-old female with a past medical history of insulin-dependent diabetes mellitus presented to the hospital with chief complaints of nausea and vomiting and admitted for diabetic ketoacidosis. Patient was initially admitted to floors and later upgraded to ICU and got treatment according to the DKA protocol Hospital course: Vitals at the time of admission are stable. Labs are significant for bicarb 19, anion gap 13, glucose 281, lactate 1.3, beta hydroxybutyrate 3.5. Urinalysis positive for 4+ ketones, 4+ glucose. Chest x-ray did not show any infiltrates. EKG showed normal sinus rhythm. ultrasound is suspicious for retained products of conception for which Dr Trejo was consulted and recommended to follow-up in outpatient basis. Beta-hCG is 457. Patient is started in ICU according to DKA protocol. Later anion gap closed in 2 days and patient was downgraded to floors for further management. No significant events happened during the hospital stay. Patient is discharged to home with the following medications and recommendations follow up with OBGYN Dr. Ramos in [place] in regards to retained products of conception. Follow up with your primary care physician within 1 week of discharge. Recommended to continue insulin lispro as per sliding scale and Insulin Glargine 40U during night and decrease the dose if fasting blood sugar is less than 90 Continue Labetolol 200mg every day and recommended to monitor blood pressures Should any symptoms recur or worsen patient is instructed to return to the ED. #Diabetes Mellitus Type 1 #Diabetic Ketoacidosis-resolved #Hypertension #First trimester #Lactic acidosis-resolved #Metabolic acidosis, anion gap-resolved #Intractable nausea and vomiting-resolved #Leukocytosis-resolved Patient plan of care was discussed with the attending physician, Dr. Gretta Tariq, PGY1 Time Spent with Patient Time attestation: Total time spent providing and/or coordinating discharge services: Time spent: Greater than 30 minutes Exam Vital Signs Temp Pulse Resp BP Pulse Ox O2 Del Method FiO2 98.6 F 96 18 128/94 H 99 Room Air 99 09/13/24 12:30 09/13/24 12:30 09/13/24 12:30 09/13/24 12:30 09/13/24 12:30 09/13/24 12:30 09/11/24 05:33 Narrative Exam General: Awake. HEENT: Normocephalic, atraumatic, mucous membranes moist. Heart: Regular rate and rhythm, no murmurs. Lungs: Clear to auscultation with no wheezing or crackles. Abdomen: Soft, nondistended, nontender, positive bowel sounds. ?No guarding or rebound tenderness. Neurologic: Alert and oriented x3, no gross neurological deficit, and patient able to move all 4 extremities. Extremities: No edema. Skin: No rash or ecchymoses. Discharge Plan Plan Patient Disposition: HOME (Self Care) Disposition Comment: Hospitalist to admit Care Plan Goals: follow up with OBGYN Dr. Ramos in [place] in regards to retained products of conception. Follow up with your primary care physician within 1 week of discharge. Recommended to continue insulin lispro as per sliding scale and Insulin Glargine 40U during night and decrease the dose if fasting blood sugar is less than 90 Continue Labetolol 200mg every day and recommended to monitor blood pressures Should any symptoms recur or worsen patient is instructed to return to the ED. Prescriptions/Referrals Prescriptions/Med Rec: New labetalol 100 mg Tablet 200 mg PO QDAY Qty: 30 0RF Continued (DME) FreeStyle Ramiro 14 Day Sensor Kit See Rx Instructions .Route Qty: 1 0RF Rx Instructions: As directed insulin lispro [Admelog U-100 Insulin lispro] 100 unit/mL solution 1 sliding scale dose subcut USEASDIRECTD Qty: 10 8RF insulin glargine [Lantus Solostar U-100 Insulin] 100 unit/mL (3 mL) insulin pen 40 unit subcut .qhs No Action ondansetron 4 mg tablet,disintegrating 4 mg PO Q6H PRN (Reason: nausea and vomiting) Qty: 10 0RF PNV cmb#95-ferrous fumarate-FA [] 28 mg iron- 800 mcg Tablet PO labetalol 200 mg tablet 200 mg PO BID Patient Comments: TAKE ONE TABLET BY MOUTH TWICE DAILY (DME) pen needle, diabetic [Easy Comfort Pen [place]] 31 gauge x 1/4 needle See Rx Instructions .Route Qty: 100 2RF Rx Instructions: As directed (DME) lancets 28 gauge misc See Rx Instructions .Route Qty: 100 0RF Rx Instructions: As directed (DME) pen needle, diabetic [Easy Comfort Pen [place]] 31 gauge x 1/4 needle See Rx Instructions .Route Qty: 100 0RF Rx Instructions: As directed Referrals: Cori Prabhakar PA-C [Primary Care Provider] - Patient/Caregiver Discharge Instructions Education Materials: CGM, Insulin How to Use and Where to Inject Print Language: Chinese Stand Alone Forms: Ophelia Award Info., Patient Portal Info Letter Discharge Order Discharge Orders: Discharge (Routine); Ordered 09/13/24 Ordered By: Cosme Tariq Quality Discharge Quality Measures VTE prophylaxis
== END 2024-09-13 12:49 | disposition home or self-care (01) | DRG 420 ==
LOC: SERX 13:16 → SERHOLD 14:20 → S2SX 09-11 08:29 → S3SX 09-13 11:47 → SERHOLD 09-22 09:53 → S2SX 09-22 09:54 → S2NX 09-22 09:54 → S2SX 09-22 09:55 → S3SX 09-22 09:55
PROVIDERS: Obstetrics & Gynecology; Student in an Organized Health Care Education/Training Program; Admitting Provider Internal Medicine; Emergency Provider Emergency Medicine; PCP Physician Assistant; Visit Provider Obstetrics & Gynecology
DX: E10.11 Type 1 diabetes mellitus with ketoacidosis with coma (principal); K21.9 Gastro-esophageal reflux disease without esophagitis; I10 Essential (primary) hypertension; D72.829 Elevated white blood cell count, unspecified; F12.90 Cannabis use, unspecified, uncomplicated; Z79.4 Long term (current) use of insulin; E83.39 Other disorders of phosphorus metabolism; Z32.01 Encounter for pregnancy test, result positive; Z79.899 Other long term (current) drug therapy; Z88.2 Allergy status to sulfonamides; Z88.8 Allergy status to other drugs, medicaments and biological substances; Z88.1 Allergy status to other antibiotic agents
CPT/HCPCS: 36415; 71045; 76801; 80053; 80061; 80069; 80307; 81001; 81025; 82010; 82803; 83036; 83605; 83690; 83735; 84100; 84443; 84484; 84702; 84703; 85025; 87040; 93005; 93225; 96361; 96374; 99291; G0378; J0613; J1644; J1650; J1815; J2405; J2765; J3475; J3480; J7030; J7120; J7121; J7999; A9270